=== PATIENT | female | born 1975 | race Caucasian/White ===

== ENCOUNTER 2016-10-09 19:44 | Emergency (ER) ==
[2016-10-09 19:49] VITALS: BP 149/94; TEMP 98.4; BMI 34.3
[2016-10-09] MEDS ORDERED: TORADOL IM STA (20:33)
[2016-10-09] MEDS ORDERED: DILAUDID 1 MG/ML SYRINGE IM STA (20:33)
--- NOTE | 2016-10-09 20:36 | ED.PDOC ---
General ED Provider: Dr. DIRK LANGE Chief Complaint: Back Pain Stated Complaint: Patient reports bilateral lower back pain after pulling a couch 4 days ago. Has been taking Ibuprufen with no relief pain is worse with ambulation better at rest. Time Seen by Physician: 20:25 Mode of Arrival: Walk-In Information Source: Patient Nursing and Triage Documentation Reviewed and Agree: Yes Musculoskeletal Complaint Exam - Back Pain Complaint/Exam Mechanism of Injury: Reports: Trauma (due to pulling ) Onset/Duration: 4 days Symptoms Are: Still present Timing: Constant Initial Severity: Moderate Current Severity: Severe Location: Reports: Diffuse (lower back ) Character: Reports: Aching, Throbbing, Spasmodic Aggravating: Reports: Bending, Walking Alleviating: Reports: Rest Associated Signs and Symptoms: Denies: Swelling, Redness, Bruising, Fever, Weakness, Numbness, Tingling, Abdominal pain, Flank pain, Bladder incontinence, Bowel incontinence, Weight loss, Pain with weight bearing TAD Risk Factors: Reports: None AAA Risk Factors: Reports: None Cauda Equina Risk Factors: Reports: None Epidural Abcess Risk Factors: Reports: None Related Surgical History: Reports: None Focal Tenderness: Yes Paraspinal Muscle Tenderness: Yes Paraspinal Muscle Spasm: Yes Scoliosis: No Lordosis: No Kyphosis: No SLR Test: Right Negative, Left Negative Hip Motion Testing Pain: Right Negative, Left Negative Focal Weakness: Present: None Focal Sensory Loss: Present: None Gait: Present: Normal Back Picture: 1 - area of pain and spasm. Tender to palpation. Differential Diagnoses: Strain, Sprain Review of Systems - Review Of Systems Constitutional: Reports: No symptoms Musculoskeletal: Reports: Back pain All Other Systems: Reviewed and Negative Past Medical History - Past Medical History Previously Healthy: Yes Endocrine: Reports: None Cardiovascular: Reports: None Respiratory: Reports: None Hematological: Reports: None Gastrointestinal: Reports: None Genitourinary: Reports: None Neuro/Psych: Reports: None Musculoskeletal: Reports: None Cancer: Reports: None Last Menstrual Period: PARTIAL HYSTERECTOMY - Surgical History General Surgical History: Reports: Hysterectomy, Cholecystectomy - Family History Family History: Reports: None - Social History Smoking Status: Current every day smoker, Light tobacco smoker Hx Substance Use: No Alcohol Screening: Occasionally Physical Exam - Physical Exam Appearance: Obese Pain Distress: Severe Neck: Supple Respiratory: Airway patent Cardiovascular: RRR, Pulses normal, No rub, No murmur GI/: Soft, Nontender, No masses, Bowel sounds normal Musculoskeletal: Normal strength, ROM intact, No edema, No calf tenderness Skin: Warm Neurological: Sensation intact, Motor intact, Reflexes intact, Cranial nerves intact, Alert, Oriented Psychiatric: Anxious Critical Care Note - Critical Care Note Total Time (mins): 0 Course - Course Orders, Labs, Meds: Orders Category Date Time Status Hydromorphone HCl [Dilaudid 1 mg/ml Syringe] MEDS 10/09/16 20:33 Stat 1 mg IM ONCE STA Ketorolac Tromethamine [Toradol] MEDS 10/09/16 20:33 Stat 60 mg IM ONCE STA Medications Generic Name Dose Route Start Last Admin Trade Name Freq PRN Reason Stop Dose Admin Ketorolac Tromethamine 60 mg 10/09/16 20:33 Toradol IM 10/09/16 20:34 ONCE STA Vital Signs: Temp Pulse Resp BP Pulse Ox 10/09/16 19:44 98.4 F 84 18 149/94 H 97 Departure - Departure Time of Disposition: 20:55 Disposition: HOME SELF-CARE Discharge Problem: Backache Instructions: Lower Back Exercises (ED), Muscle Spasm (ED), Back Pain (ED) Condition: Fair Pt referred to PMD for follow-up: Yes Prescriptions: Hydrocodone/Acetaminophen [[place] 5-325 Tablet] 1 tab PO Q6HR PRN #12 tablet PRN Reason: PAIN Cyclobenzaprine HCl [Flexeril] 5 mg PO TID PRN #14 tablet PRN Reason: Spasms Ibuprofen [Motrin] 600 mg PO Q6H PRN #30 tablet PRN Reason: Analgesia Allergies/Adverse Reactions: Allergies marvin flavor Adverse Reaction (Verified 10/09/16 19:50) Swelling diltiazem HCl [From Cardizem] Adverse Reaction (Verified 10/09/16 19:50) Rash egg Adverse Reaction (Verified 10/09/16 19:50) Rash meperidine HCl [From Demerol] Adverse Reaction (Verified 10/09/16 19:50) Rash morphine Adverse Reaction (Verified 10/09/16 19:50) Rash oxycodone HCl [From Percocet] Adverse Reaction (Verified 10/09/16 19:50) Rash Home Medications: Ambulatory Orders Cyclobenzaprine HCl [Flexeril] 5 mg PO TID PRN #14 tablet 10/09/16 Hydrocodone/Acetaminophen [[place] 5-325 Tablet] 1 tab PO Q6HR PRN #12 tablet 12/21 Ibuprofen [Motrin] 600 mg PO Q6H PRN #30 tablet 10/09/16 Disposition Discussed With: Patient, Family
== END 2016-10-09 21:45 | disposition home or self-care (01) ==
LOC: ED 19:44
DX: M54.5 Low back pain (principal); M62.830 Muscle spasm of back; F17.210 Nicotine dependence, cigarettes, uncomplicated; X50.9XXA Other and unspecified overexertion or strenuous movements or postures, initial encounter
CPT/HCPCS: 96372; 99282

== ENCOUNTER 2016-12-22 00:43 | Emergency (ER) ==
[2016-12-22 00:50] VITALS: BP 145/81; TEMP 97.8; BMI 36.8
[2016-12-22] MEDS ORDERED: DILAUDID 1 MG/ML SYRINGE IM STA (01:19)
[2016-12-22] MEDS ORDERED: PHENERGAN 25 MG/ML VIAL IM STA (01:20)
--- NOTE | 2016-12-22 03:08 | ED.PDOC ---
General ED Provider: Dr. FELY NÚÑEZ-ER Chief Complaint: Headache Stated Complaint: solitario got a headache--its the usual migraine Time Seen by Physician: 00:50 Mode of Arrival: Walk-In Information Source: Patient Exam Limitations: No limitations Nursing and Triage Documentation Reviewed and Agree: Yes Neurological Complaint Exam - Headache Complaint/Exam Onset: Gradual Duration: several hours Symptoms Are: Still present Timing: Constant Episodes Lasting: Hours Worst Headache Ever: No Initial Severity: Mild Current Severity: Moderate Location: Diffuse Character: Reports: Dull, Throbbing, Pressure, Typical headache, Migraine Aggravating: Reports: Bright lights Alleviating: Reports: None Associated Signs and Symptoms: Reports: Nausea. Denies: Dizziness, Seizure, Sinus pressure, Fever, Neck pain, Neck stiffness, Decreased LOC, Visual changes Related History: Reports: Similar episode Related Surgical History: Reports: None SAH Risk Factors: Denies: None Meningitis Risk Factors: Reports: None SDH Risk Factors: Reports: None Temporal Arteritis Risk Factors: Reports: Female, Normal Head CT Within Last 12 Months: Yes Fundoscopic Exam: Present: Normal Findings Papilledema Present: No Temporal Artery Tenderness: Present: None Sinus Tenderness: Present: None TMJ Tenderness: Present: None Glascow Coma Scale (see protocol): 15 Meningeal Signs Positive: No Pain on Passive Flexion-Positive Kernig's: No ROM Limited In: No Limitiations Focal Weakness: Present: None Focal Sensory Loss: Present: None Gait: Normal Nystagmus Present: No Gag Reflex Present: Yes [id number]: Normal Findings Romberg Test Positive: No Babinski Sign: Negative Right, Negative Left Heel to Toe Normal: Yes Differential Diagnoses: Migraine Review of Systems - Review Of Systems Constitutional: Reports: No symptoms Eyes: Reports: No symptoms Ears, Nose, Mouth, Throat: Reports: No symptoms Respiratory: Reports: No symptoms Cardiac: Reports: No symptoms GI: Reports: No symptoms : Reports: No symptoms Musculoskeletal: Reports: No symptoms Skin: Reports: No symptoms Neurological: Reports: Headache Endocrine: Reports: No symptoms Hematologic/Lymphatic: Reports: No symptoms All Other Systems: Reviewed and Negative Past Medical History - Past Medical History Previously Healthy: Yes Endocrine: Reports: None Cardiovascular: Reports: None Respiratory: Reports: None Hematological: Reports: None Gastrointestinal: Reports: None Genitourinary: Reports: None Neuro/Psych: Reports: None Musculoskeletal: Reports: None Cancer: Reports: None Last Menstrual Period: PT HAD PARTIAL HYSTERECTOMY IN 2003 - Surgical History General Surgical History: Reports: Hysterectomy, Cholecystectomy - Family History Family History: Reports: None - Social History Smoking Status: Current every day smoker, Heavy tobacco smoker Hx Substance Use: No Alcohol Screening: None Lives: With family - Immunizations Tetanus Shot up to Date: Yes Physical Exam - Physical Exam Appearance: Well-appearing, No pain distress, Well-nourished Eyes: SOFY, EOMI, Conjunctiva clear ENT: Ears normal, Nose normal, Oropharynx normal Neck: Supple Respiratory: Airway patent Cardiovascular: RRR, Pulses normal, No rub, No murmur GI/: Soft, Nontender, No masses, Bowel sounds normal, No Organomegaly Musculoskeletal: Normal strength, ROM intact, No edema, No calf tenderness Skin: Warm, Dry, Normal color Neurological: Sensation intact, Motor intact, Reflexes intact, Cranial nerves intact, Alert, Oriented Psychiatric: Affect appropriate, Mood appropriate Re-Evaluation - Re-Evaluation Time of Re-Evaluation: 02:30 Status: Improved Vital Signs Stable: Yes Pain Level: 0 Appearance: NAD Lungs: Clear Skin: Warm and Dry Neuro: Alert and Oriented X3 CV: RRR Critical Care Note - Critical Care Note Total Time (mins): 0 Course - Course Orders, Labs, Meds: Orders Category Date Time Status Hydromorphone HCl [Dilaudid 1 mg/ml Syringe] MEDS 12/22/16 01:19 Discontinued 1 mg IM ONCE STA Promethazine HCl [Phenergan 25 mg/ml Vial] MEDS 12/22/16 01:20 Discontinued 25 mg IM ONCE STA Medications Discontinued Medications Generic Name Dose Route Start Last Admin Trade Name Carlota PRN Reason Stop Dose Admin Hydromorphone HCl 1 mg 12/22/16 01:19 12/22/16 01:29 Dilaudid 1 Mg/Ml Syringe IM 12/22/16 01:20 1 mg ONCE STA Administration Promethazine HCl 25 mg 12/22/16 01:20 12/22/16 01:29 Phenergan 25 Mg/Ml Vial IM 12/22/16 01:21 25 mg ONCE STA Administration Vital Signs: Temp Pulse Resp BP Pulse Ox 12/22/16 00:43 97.8 F 96 H 18 145/81 H 98 Departure - Departure Time of Disposition: 03:10 Disposition: HOME SELF-CARE Discharge Problem: Migraine Qualifiers: Migraine type: unspecified Status migrainosus presence: without status migrainosus Intractability: not intractable Qualifier Code: (G43.909) Migraine, unspecified, not intractable, without status migrainosus Instructions: Migraine Headache (ED) Condition: Good Pt referred to PMD for follow-up: Yes Additional Instructions: f/u with pcp Allergies/Adverse Reactions: Allergies marvin flavor Adverse Reaction (Verified 12/22/16 00:51) Swelling diltiazem HCl [From Cardizem] Adverse Reaction (Verified 12/22/16 00:51) Rash egg Adverse Reaction (Verified 12/22/16 00:51) Rash meperidine HCl [From Demerol] Adverse Reaction (Verified 12/22/16 00:51) Rash morphine Adverse Reaction (Verified 12/22/16 00:51) Rash oxycodone HCl [From Percocet] Adverse Reaction (Verified 12/22/16 00:51) Rash tramadol Adverse Reaction (Verified 12/22/16 00:51) Vomiting Home Medications: Ambulatory Orders Ibuprofen [Motrin] 600 mg PO Q6H PRN #30 tablet 10/09/16 Disposition Discussed With: Patient
== END 2016-12-22 03:15 | disposition home or self-care (01) ==
LOC: ED 00:43
DX: G43.909 Migraine, unspecified, not intractable, without status migrainosus (principal); F17.210 Nicotine dependence, cigarettes, uncomplicated
CPT/HCPCS: 96372; 99282

== ENCOUNTER 2017-01-25 00:14 | Emergency (ER) ==
[2017-01-25 00:28] VITALS: TEMP 97.6; BMI 40.6
--- NOTE | 2017-01-25 01:18 | ED.PDOC ---
General ED Provider: Dr. DIRK LANGE Chief Complaint: Shoulder Pain/Injury Stated Complaint: Pain with movement to right shoulder. Patient states that she heard a loud pop two days ago and it gave her temporary relief Time Seen by Physician: 01:14 Mode of Arrival: Walk-In Information Source: Patient Nursing and Triage Documentation Reviewed and Agree: Yes Musculoskeletal Complaint Exam - Upper Extremity Complaint/Exam Location of Pain: Reports: Right, Shoulder Mechanism of Injury: Reports: No known trauma Onset/Duration: 2 days Symptoms Are: Still present Timing: Constant Initial Severity: Moderate Current Severity: Severe Character: Reports: Aching, Throbbing, Spasmodic Aggravating: Reports: Movement, Lifting, Internal rotation Alleviating: Reports: None Related History: Reports: Similar episode Non-Orthopedic Risk Factors: Reports: None DVT Risk Factors: Reports: None Septic Arthritis Risk Factors: Reports: None Related Surgical History: Reports: None Upper Extremity Findings: Present: Swelling NV Bundle Intact Distal to Injury: No Compartment Syndrome Risk Factors: Present: Pain, Pulselessness Differential Diagnoses: Strain, Sprain Review of Systems - Review Of Systems Constitutional: Reports: No symptoms Eyes: Reports: No symptoms Ears, Nose, Mouth, Throat: Reports: No symptoms Respiratory: Reports: No symptoms Cardiac: Reports: No symptoms GI: Reports: No symptoms : Reports: No symptoms Musculoskeletal: Reports: Joint pain Skin: Reports: No symptoms Neurological: Reports: Anxiety Endocrine: Reports: No symptoms Hematologic/Lymphatic: Reports: No symptoms All Other Systems: Reviewed and Negative Past Medical History - Past Medical History Previously Healthy: Yes Endocrine: Reports: None Cardiovascular: Reports: None Respiratory: Reports: None Hematological: Reports: None Gastrointestinal: Reports: None Genitourinary: Reports: None Neuro/Psych: Reports: None Musculoskeletal: Reports: None Cancer: Reports: None Last Menstrual Period: 2002 - Surgical History General Surgical History: Reports: Hysterectomy, Cholecystectomy - Family History Family History: Reports: None - Social History Smoking Status: Current every day smoker, Heavy tobacco smoker Hx Substance Use: No Alcohol Screening: None Physical Exam - Physical Exam Appearance: Obese Pain Distress: Moderate Eyes: SOFY, EOMI, Conjunctiva clear ENT: Ears normal, Nose normal, Oropharynx normal Neck: Supple Respiratory: Airway patent, Breath sounds clear, Breath sounds equal, Respirations nonlabored Cardiovascular: RRR, Pulses normal, No rub, No murmur GI/: Soft, Nontender, No masses, Bowel sounds normal, No Organomegaly Musculoskeletal: Normal strength, No edema, No calf tenderness, Limited ROM ( righth shoulder ) Skin: Warm, Dry, Normal color Neurological: Sensation intact, Motor intact, Reflexes intact, Cranial nerves intact, Alert, Oriented Psychiatric: Anxious Re-Evaluation - Re-Evaluation Time of Re-Evaluation: 01:15 Status: Improved Vital Signs Stable: Yes (136/92) Critical Care Note - Critical Care Note Total Time (mins): 0 Course - Course Orders, Labs, Meds: Orders Category Date Time Status Hydrocodone Bit/Acetaminophen [[place] 7.5-325] MEDS 01/25/17 01:21 Discontinued 1 tab PO ONCE STA Methylprednisolone Sod Succ/Pf [Solu-Medrol 125 mg] MEDS 01/25/17 01:21 Discontinued 125 mg IM ONCE STA Medications Discontinued Medications Generic Name Dose Route Start Last Admin Trade Name Freq PRN Reason Stop Dose Admin Acetaminophen/Hydrocodone Bitart 1 tab 01/25/17 01:21 01/25/17 01:28 [place] 7.5-325 PO 01/25/17 01:22 1 tab ONCE STA Administration Methylprednisolone Sodium Succinate 125 mg 01/25/17 01:21 01/25/17 01:28 Solu-Medrol 125 Mg IM 01/25/17 01:22 125 mg ONCE STA Administration Vital Signs: Temp Pulse Resp BP Pulse Ox 01/25/17 01:32 136/92 H 01/25/17 00:15 97.6 F 90 18 156/110 H 98 Departure - Departure Time of Disposition: 01:17 Disposition: HOME SELF-CARE Discharge Problem: Shoulder pain Instructions: Rotator Cuff Tendinitis (ED) Condition: Fair Pt referred to PMD for follow-up: Yes Additional Instructions: Continue home Ibuprofen take [place] as needed for severe pain. Follow up with the clinic for Therapy referral. Prescriptions: Hydrocodone/Acetaminophen [[place] 5-325 Tablet] 1 tab PO Q6HR PRN #12 tablet PRN Reason: PAIN Methylprednisolone [Medrol Dosepak] 4 mg PO DIRECTED #1 pkg Allergies/Adverse Reactions: Allergies marvin flavor Adverse Reaction (Verified 01/25/17 00:20) Swelling diltiazem HCl [From Cardizem] Adverse Reaction (Verified 01/25/17 00:20) Rash egg Adverse Reaction (Verified 01/25/17 00:20) Rash meperidine HCl [From Demerol] Adverse Reaction (Verified 01/25/17 00:20) Rash morphine Adverse Reaction (Verified 01/25/17 00:20) Rash oxycodone HCl [From Percocet] Adverse Reaction (Verified 01/25/17 00:20) Rash tramadol Adverse Reaction (Verified 01/25/17 00:20) Vomiting Home Medications: Ambulatory Orders Ibuprofen [Motrin] 600 mg PO Q6H PRN #30 tablet 10/09/16 Hydrocodone/Acetaminophen [[place] 5-325 Tablet] 1 tab PO Q6HR PRN #12 tablet Methylprednisolone [Medrol Dosepak] 4 mg PO DIRECTED #1 pkg 01/25/17 Disposition Discussed With: Patient
[2017-01-25] MEDS ORDERED: NORCO 7.5-325 PO STA (01:21)
[2017-01-25] MEDS ORDERED: SOLU-MEDROL 125 MG IM STA (01:21)
[2017-01-25 01:52] VITALS: BP 136/92
== END 2017-01-25 01:45 | disposition home or self-care (01) ==
LOC: ED 00:14
DX: M75.101 Unspecified rotator cuff tear or rupture of right shoulder, not specified as traumatic (principal)
CPT/HCPCS: 96372; 99282

== ENCOUNTER 2017-10-05 20:55 | Emergency (ER) ==
[2017-10-05 21:00] VITALS: BP 168/92; TEMP 97.7; BMI 40.3
--- NOTE | 2017-10-05 21:17 | ED.PDOC ---
General ED Provider: Dr. BRAYAN JENKINS Chief Complaint: Extremity Swelling/Pain Stated Complaint: Rt leg is swollen tender, No Injury or fall. Worried about the clots. Time Seen by Physician: 21:15 Mode of Arrival: Walk-In Information Source: Patient Nursing and Triage Documentation Reviewed and Agree: Yes Reviewed sepsis parameters & appropriate labs ordered?: Yes System Inflammatory Response Syndrome: Not Applicable Sepsis Protocol: For patient's 13 years and over: Temp is 96.8 and below OR 101 and greater Pulse >90 BPM Resp >20/minute Acutely Altered Mental Status Are patient's symptoms suggestive of a new infection, such as: -Pneumonia -Skin, Soft Tissue -Endocarditis -UTI -Bone, Joint Infection -Implantable Device -Acute Abdominal Infection -Wound Infection -Meningitis -Blood Stream Catheter Infection -Unknown Musculoskeletal Complaint Exam - Lower Extremity Complaint/Exam Location of Pain: Reports: Right, Leg, Knee Mechanism of Injury: Reports: No known trauma Symptoms Are: Still present Onset of Pain: Reports: Immediate Initial Severity: Moderate Current Severity: Moderate Location: Reports: Diffuse Character: Reports: Dull, Aching Alleviating: Reports: None Aggravating: Reports: Movement, Weight bearing Able to Bear Weight: Yes Associated Signs and Symptoms: Reports: Swelling. Denies: Redness, Bruising, Fever, Weakness, Numbness, Tingling DVT Risk Factors: Reports: None Septic Arthritis Risk Factors: Reports: None Related Surgical History: Reports: None Lower Extremity Findings: Present: Swelling. Absent: Abnormal contour, Rotation NV Bundle Intact Distal to Injury: No Differential Diagnoses: DVT, Strain Review of Systems - Review Of Systems Constitutional: Reports: No symptoms Eyes: Reports: No symptoms Ears, Nose, Mouth, Throat: Reports: No symptoms Respiratory: Reports: No symptoms Cardiac: Reports: No symptoms GI: Reports: No symptoms : Reports: No symptoms Musculoskeletal: Reports: Joint pain, Muscle pain Skin: Reports: No symptoms Neurological: Reports: No symptoms Endocrine: Reports: No symptoms Hematologic/Lymphatic: Reports: No symptoms All Other Systems: Reviewed and Negative Past Medical History - Past Medical History Previously Healthy: Yes Endocrine: Reports: None Cardiovascular: Reports: None Respiratory: Reports: None Hematological: Reports: None Gastrointestinal: Reports: None Genitourinary: Reports: None Neuro/Psych: Reports: None Musculoskeletal: Reports: None Cancer: Reports: None Last Menstrual Period: na - Surgical History General Surgical History: Reports: Hysterectomy, Cholecystectomy - Family History Family History: Reports: None - Social History Smoking Status: Current every day smoker, Heavy tobacco smoker Hx Substance Use: No Alcohol Screening: None - Immunizations Tetanus Shot up to Date: Yes Physical Exam - Physical Exam Appearance: Obese Pain Distress: Moderate Eyes: SOFY, EOMI, Conjunctiva clear ENT: Ears normal, Nose normal, Oropharynx normal Respiratory: Airway patent, Breath sounds clear, Breath sounds equal, Respirations nonlabored Cardiovascular: RRR, Pulses normal, No rub, No murmur GI/: Soft, Nontender, No masses, Bowel sounds normal, No Organomegaly Musculoskeletal: Limited ROM, Edema Skin: Warm, Dry, Normal color Neurological: Sensation intact, Motor intact, Reflexes intact, Cranial nerves intact, Alert, Oriented Psychiatric: Affect appropriate, Mood appropriate Critical Care Note - Critical Care Note Total Time (mins): 10 Course - Course Vital Signs: Temp Pulse Resp BP Pulse Ox 10/05/17 20:57 97.7 F 70 20 168/92 H 97 Departure - Departure Time of Disposition: 21:17 Disposition: AMA Discharge Problem: Edema of lower extremity Instructions: Leg Pain (ED) Condition: Stable Pt referred to PMD for follow-up: Yes Additional Instructions: son is taking her to [place], where they scan the leg for the DVT Allergies/Adverse Reactions: Allergies marvin flavor Adverse Reaction (Verified 10/05/17 21:04) Swelling diltiazem HCl [From Cardizem] Adverse Reaction (Verified 10/05/17 21:04) Rash egg Adverse Reaction (Verified 10/05/17 21:04) Rash meperidine HCl [From Demerol] Adverse Reaction (Verified 10/05/17 21:04) Rash morphine Adverse Reaction (Verified 10/05/17 21:04) Rash oxycodone HCl [From Percocet] Adverse Reaction (Verified 10/05/17 21:04) Rash tramadol Adverse Reaction (Verified 10/05/17 21:04) Vomiting Home Medications: Ambulatory Orders 1 [No Reported Medications] 08/10/17 Disposition Discussed With: Patient, Family
== END 2017-10-05 21:20 | disposition left against medical advice (07) ==
LOC: ED 20:55
DX: R60.0 Localized edema (principal); F17.210 Nicotine dependence, cigarettes, uncomplicated
CPT/HCPCS: 99284

== ENCOUNTER 2017-10-31 16:09 | Outpatient (CLI) | END 2017-10-31 16:10 | disposition home or self-care (01) | LOC: LAB 16:09 | PROVIDERS: ATTEND Emergency Medicine | DX: F33.1 Major depressive disorder, recurrent, moderate (principal); F41.1 Generalized anxiety disorder; M79.7 Fibromyalgia; K21.9 Gastro-esophageal reflux disease without esophagitis | CPT/HCPCS: 36415; 80053; 80061; 84443; 85025 ==

== ENCOUNTER 2017-11-29 22:04 | Emergency (ER) ==
[2017-11-29 22:15] VITALS: BP 129/80; TEMP 97.8; BMI 41.2
[2017-11-29] MEDS ORDERED: DILAUDID 1 MG/ML SYRINGE IM STA (22:34)
[2017-11-29] MEDS ORDERED: ZOFRAN 4 MG/2 ML IM STA (22:34)
--- NOTE | 2017-11-29 22:37 | ED.PDOC ---
General ED Provider: Dr. BRAYAN JENKINS Chief Complaint: Headache Stated Complaint: Typical migraine, not able help with home medications Time Seen by Physician: 22:34 Mode of Arrival: Walk-In Information Source: Patient Primary Care Provider: BRAYAN JENKINS[facility] Nursing and Triage Documentation Reviewed and Agree: Yes Reviewed sepsis parameters & appropriate labs ordered?: No System Inflammatory Response Syndrome: Not Applicable Sepsis Protocol: For patient's 13 years and over: Temp is 96.8 and below OR 101 and greater Pulse >90 BPM Resp >20/minute Acutely Altered Mental Status Are patient's symptoms suggestive of a new infection, such as: -Pneumonia -Skin, Soft Tissue -Endocarditis -UTI -Bone, Joint Infection -Implantable Device -Acute Abdominal Infection -Wound Infection -Meningitis -Blood Stream Catheter Infection -Unknown Neurological Complaint Exam - Headache Complaint/Exam Onset: Gradual Symptoms Are: Still present Timing: Constant Episodes Lasting: Hours Worst Headache Ever: No Initial Severity: Moderate Current Severity: Moderate Location: Left, Frontal Character: Reports: Dull, Throbbing, Typical headache, Migraine Aggravating: Reports: None Alleviating: Reports: None Associated Signs and Symptoms: Denies: Dizziness, Seizure, Nausea, Vomiting, Sinus pressure, Fever, Neck pain, Neck stiffness, Decreased LOC, Visual changes Related History: Reports: Similar episode Related Surgical History: Reports: None SAH Risk Factors: Reports: None Meningitis Risk Factors: Reports: None SDH Risk Factors: Reports: None Temporal Arteritis Risk Factors: Reports: None Normal Head CT Within Last 12 Months: Yes Fundoscopic Exam: Present: Normal Findings Sinus Tenderness: Present: None TMJ Tenderness: Present: None Meningeal Signs Positive: No Pain on Passive Flexion-Positive Kernig's: No ROM Limited In: No Limitiations Focal Weakness: Present: None Focal Sensory Loss: Present: None Gait: Normal Nystagmus Present: Yes Gag Reflex Present: No [id number]: Normal Findings Romberg Test Positive: No Differential Diagnoses: Migraine Review of Systems - Review Of Systems Constitutional: Reports: No symptoms Eyes: Reports: No symptoms Ears, Nose, Mouth, Throat: Reports: No symptoms Respiratory: Reports: No symptoms Cardiac: Reports: No symptoms GI: Reports: No symptoms : Reports: No symptoms Musculoskeletal: Reports: No symptoms Skin: Reports: No symptoms Neurological: Reports: Headache Endocrine: Reports: No symptoms Hematologic/Lymphatic: Reports: No symptoms All Other Systems: Reviewed and Negative Past Medical History - Past Medical History Previously Healthy: Yes Endocrine: Reports: Dyslipidemia Cardiovascular: Reports: None Respiratory: Reports: None Hematological: Reports: None Gastrointestinal: Reports: None Genitourinary: Reports: None Neuro/Psych: Reports: Depression Musculoskeletal: Reports: None Cancer: Reports: None Last Menstrual Period: hyst 2002 - Surgical History General Surgical History: Reports: Hysterectomy, Cholecystectomy - Family History Family History: Reports: None - Social History Smoking Status: Current every day smoker, Heavy tobacco smoker Smoking Cessation Counseling Time: > 3 min - 10 min Hx Substance Use: No Alcohol Screening: None - Immunizations Tetanus Shot up to Date: Yes Physical Exam - Physical Exam Appearance: Ill-appearing Eyes: SOFY, EOMI, Conjunctiva clear ENT: Ears normal, Nose normal, Oropharynx normal Respiratory: Airway patent, Breath sounds clear, Breath sounds equal, Respirations nonlabored Cardiovascular: RRR, Pulses normal, No rub, No murmur GI/: Soft, Nontender, No masses, Bowel sounds normal, No Organomegaly Musculoskeletal: Normal strength, ROM intact, No edema, No calf tenderness Skin: Warm, Dry, Normal color Neurological: Sensation intact, Motor intact, Reflexes intact, Cranial nerves intact, Alert, Oriented Psychiatric: Affect appropriate, Mood appropriate Critical Care Note - Critical Care Note Total Time (mins): 15 Course - Course Orders, Labs, Meds: Orders Category Date Time Status Hydromorphone HCl [Dilaudid 1 mg/ml Syringe] MEDS 11/29/17 22:34 Stat 1 mg IM ONCE STA Ondansetron HCl/Pf [Zofran 4 mg/2 ml] MEDS 11/29/17 22:34 Stat 4 mg IM ONCE STA Vital Signs: Temp Pulse Resp BP Pulse Ox 11/29/17 22:10 97.8 F 87 20 129/80 97 Departure - Departure Time of Disposition: 22:38 Disposition: HOME SELF-CARE Discharge Problem: Headache Instructions: Migraine Headache (ED) Condition: Stable Pt referred to PMD for follow-up: Yes IPMP verified?: No Additional Instructions: keep monitoring the headaches, May needs neurologist . Allergies/Adverse Reactions: Allergies marvin flavor Adverse Reaction (Verified 11/29/17 22:16) Swelling diltiazem HCl [From Cardizem] Adverse Reaction (Verified 11/29/17 22:16) Rash egg Adverse Reaction (Verified 11/29/17 22:16) Rash meperidine HCl [From Demerol] Adverse Reaction (Verified 11/29/17 22:16) Rash morphine Adverse Reaction (Verified 11/29/17 22:16) Rash oxycodone HCl [From Percocet] Adverse Reaction (Verified 11/29/17 22:16) Rash tramadol Adverse Reaction (Verified 11/29/17 22:16) Vomiting Home Medications: Ambulatory Orders Famotidine/Ca Carb/Mag Hydrox [Pepcid Complete Tablet Chew] 1 each PO BID tab- cap 10/31/17 Ibuprofen 600 mg PO QID PRN tab-cap 10/31/17 Bupropion HCl [Wellbutrin Sr] 150 mg PO DAILY 11/29/17 Disposition Discussed With: Patient, Family
== END 2017-11-29 23:14 | disposition home or self-care (01) ==
LOC: ED 22:04
DX: G43.909 Migraine, unspecified, not intractable, without status migrainosus (principal); F17.210 Nicotine dependence, cigarettes, uncomplicated
CPT/HCPCS: 96372; 99282

== ENCOUNTER 2017-12-04 18:15 | Emergency (ER) ==
[2017-12-04 18:23] VITALS: BP 140/87; TEMP 97.8; BMI 41.1
[2017-12-04] MEDS ORDERED: DILAUDID 2 MG/ML SYRINGE IM STA (18:27)
[2017-12-04] MEDS ORDERED: PHENERGAN 25 MG/ML VIAL IM STA (18:28)
--- NOTE | 2017-12-04 18:31 | ED.PDOC ---
General ED Provider: Dr. MICHELL MASSEY Chief Complaint: Headache Stated Complaint: headache chronic Time Seen by Physician: 18:17 (seen with nurse at all times , seen on for same issue ) Mode of Arrival: Walk-In Information Source: Patient Exam Limitations: No limitations Primary Care Provider: B[facility]AN A[facility]YAST. [facility] Nursing and Triage Documentation Reviewed and Agree: Yes Reviewed sepsis parameters & appropriate labs ordered?: Yes (no injury) System Inflammatory Response Syndrome: Not Applicable Sepsis Protocol: For patient's 13 years and over: Temp is 96.8 and below OR 101 and greater Pulse >90 BPM Resp >20/minute Acutely Altered Mental Status Are patient's symptoms suggestive of a new infection, such as: -Pneumonia -Skin, Soft Tissue -Endocarditis -UTI -Bone, Joint Infection -Implantable Device -Acute Abdominal Infection -Wound Infection -Meningitis -Blood Stream Catheter Infection -Unknown System Inflammatory Response Syndrome: Not Applicable Neurological Complaint Exam - Headache Complaint/Exam Onset: Gradual Duration: chronic issue worse today Symptoms Are: Still present Timing: Constant Episodes Lasting: Hours Worst Headache Ever: No Initial Severity: Moderate Current Severity: Moderate Character: Reports: Throbbing Aggravating: Reports: None Alleviating: Reports: None Associated Signs and Symptoms: Denies: Dizziness, Seizure, Nausea, Vomiting, Sinus pressure, Fever, Neck pain, Neck stiffness, Decreased LOC, Visual changes Related History: Reports: Similar episode Related Surgical History: Reports: None SAH Risk Factors: Reports: None Meningitis Risk Factors: Reports: None SDH Risk Factors: Reports: None Temporal Arteritis Risk Factors: Reports: Female, Normal Head CT Within Last 12 Months: Yes Fundoscopic Exam: Present: Normal Findings Papilledema Present: No Temporal Artery Tenderness: Present: None Sinus Tenderness: Present: None TMJ Tenderness: Present: None Glascow Coma Scale (see protocol): 15 Meningeal Signs Positive: No Pain on Passive Flexion-Positive Kernig's: No ROM Limited In: No Limitiations Focal Weakness: Present: None Focal Sensory Loss: Present: None Gait: Normal Nystagmus Present: No Gag Reflex Present: Yes Romberg Test Positive: No Babinski Sign: Negative Right, Negative Left Differential Diagnoses: Migraine Review of Systems - Review Of Systems Constitutional: Reports: No symptoms Eyes: Reports: No symptoms Ears, Nose, Mouth, Throat: Reports: No symptoms Respiratory: Reports: No symptoms Cardiac: Reports: No symptoms GI: Reports: No symptoms : Reports: No symptoms Musculoskeletal: Reports: No symptoms Skin: Reports: No symptoms Neurological: Reports: Headache Endocrine: Reports: No symptoms Hematologic/Lymphatic: Reports: No symptoms All Other Systems: Reviewed and Negative Past Medical History - Past Medical History Previously Healthy: Yes Endocrine: Reports: Dyslipidemia Cardiovascular: Reports: None Respiratory: Reports: None Hematological: Reports: None Gastrointestinal: Reports: None Genitourinary: Reports: None Neuro/Psych: Reports: Depression Musculoskeletal: Reports: None Cancer: Reports: None Last Menstrual Period: na - Surgical History General Surgical History: Reports: Hysterectomy, Cholecystectomy - Family History Family History: Reports: None - Social History Smoking Status: Current every day smoker Hx Substance Use: No Alcohol Screening: None - Immunizations Tetanus Shot up to Date: Yes Physical Exam - Physical Exam Appearance: Well-appearing, No pain distress, Well-nourished Eyes: SOFY, EOMI, Conjunctiva clear ENT: Ears normal, Nose normal, Oropharynx normal Respiratory: Airway patent, Breath sounds clear, Breath sounds equal, Respirations nonlabored Cardiovascular: RRR, Pulses normal, No rub, No murmur GI/: Soft, Nontender, No masses, Bowel sounds normal, No Organomegaly Musculoskeletal: Normal strength, ROM intact, No edema, No calf tenderness Skin: Warm, Dry, Normal color Neurological: Sensation intact, Motor intact, Reflexes intact, Cranial nerves intact, Alert, Oriented Psychiatric: Affect appropriate, Mood appropriate Critical Care Note - Critical Care Note Total Time (mins): 0 Course - Course Orders, Labs, Meds: Orders Category Date Time Status Hydromorphone HCl/Pf [Dilaudid 2 mg/ml Syringe] MEDS 12/04/17 18:27 Stat 0.5 mg IM ONCE STA Promethazine HCl [Phenergan 25 mg/ml Vial] MEDS 12/04/17 18:28 Stat 50 mg IM ONCE STA Medications Generic Name Dose Route Start Last Admin Trade Name Freq PRN Reason Stop Dose Admin Promethazine HCl 50 mg 12/04/17 18:28 Phenergan 25 Mg/Ml Vial IM 12/04/17 18:29 ONCE STA Discontinued Medications Generic Name Dose Route Start Last Admin Trade Name Freq PRN Reason Stop Dose Admin Hydromorphone HCl 0.5 mg 12/04/17 18:27 Dilaudid 2 Mg/Ml Syringe IM 12/04/17 18:28 ONCE STA Vital Signs: Temp Pulse Resp BP Pulse Ox 12/04/17 18:17 97.8 F 87 16 140/87 97 Departure - Departure Time of Disposition: 19:00 (seen with layla) Disposition: HOME SELF-CARE Discharge Problem: Headache Instructions: Migraine Headache (ED) Condition: Good Pt referred to PMD for follow-up: Yes IPMP verified?: Yes Additional Instructions: Please call your Family Physician as soon as possible to schedule a follow-up appointment. Allergies/Adverse Reactions: Allergies marvin flavor Adverse Reaction (Verified 12/04/17 18:24) Swelling diltiazem HCl [From Cardizem] Adverse Reaction (Verified 12/04/17 18:24) Rash egg Adverse Reaction (Verified 12/04/17 18:24) Rash meperidine HCl [From Demerol] Adverse Reaction (Verified 12/04/17 18:24) Rash morphine Adverse Reaction (Verified 12/04/17 18:24) Rash oxycodone HCl [From Percocet] Adverse Reaction (Verified 12/04/17 18:24) Rash tramadol Adverse Reaction (Verified 12/04/17 18:24) Vomiting Home Medications: Ambulatory Orders Ibuprofen 600 mg PO QID PRN tab-cap 10/31/17 Bupropion HCl [Wellbutrin Sr] 150 mg PO DAILY 11/29/17 Aspirin/Acetaminophen/Caffeine [Excedrin Migraine Caplet] 1 each PO PRN
[2017-12-04] MEDS ORDERED: DILAUDID 1 MG/ML SYRINGE IM STA (18:34)
== END 2017-12-04 19:51 | disposition home or self-care (01) ==
LOC: ED 18:15
DX: R51 Headache (principal); F17.210 Nicotine dependence, cigarettes, uncomplicated
CPT/HCPCS: 96372; 99283

== ENCOUNTER 2018-01-01 22:58 | Emergency (ER) ==
[2018-01-01 23:16] VITALS: BP 146/83; TEMP 98.1; BMI 41.4
[2018-01-01] MEDS ORDERED: TORADOL IM STA (23:31)
[2018-01-01] MEDS ORDERED: DILAUDID 2 MG/ML SYRINGE IM STA (23:31)
[2018-01-01] MEDS ORDERED: PHENERGAN 25 MG/ML VIAL IM STA (23:31)
[2018-01-01] MEDS ORDERED: DILAUDID 2 MG/ML SYRINGE ONE (23:33)
[2018-01-01] MEDS ORDERED: PHENERGAN 25 MG/ML VIAL ONE (23:33)
[2018-01-01] MEDS ORDERED: TORADOL ONE (23:34)
--- NOTE | 2018-01-01 23:35 | ED.PDOC ---
General ED Provider: Dr. FELY NÚÑEZ-ER Chief Complaint: Headache Stated Complaint: solitario got a migraine Time Seen by Physician: 23:20 Mode of Arrival: Walk-In Information Source: Patient Exam Limitations: No limitations [facility] Nursing and Triage Documentation Reviewed and Agree: Yes Reviewed sepsis parameters & appropriate labs ordered?: Yes System Inflammatory Response Syndrome: Not Applicable Sepsis Protocol: For patient's 13 years and over: Temp is 96.8 and below OR 101 and greater Pulse >90 BPM Resp >20/minute Acutely Altered Mental Status Are patient's symptoms suggestive of a new infection, such as: -Pneumonia -Skin, Soft Tissue -Endocarditis -UTI -Bone, Joint Infection -Implantable Device -Acute Abdominal Infection -Wound Infection -Meningitis -Blood Stream Catheter Infection -Unknown Neurological Complaint Exam - Headache Complaint/Exam Onset: Gradual Duration: several hours Symptoms Are: Still present Timing: Constant Worst Headache Ever: No Initial Severity: Mild Current Severity: Moderate Location: Diffuse Character: Reports: Dull, Throbbing, Typical headache, Migraine Aggravating: Reports: Bright lights Alleviating: Reports: Position change Associated Signs and Symptoms: Reports: Nausea, Neck pain. Denies: Dizziness, Seizure, Vomiting, Sinus pressure, Fever, Neck stiffness, Decreased LOC, Visual changes Related History: Reports: Similar episode Related Surgical History: Reports: None SAH Risk Factors: Reports: None Meningitis Risk Factors: Reports: None SDH Risk Factors: Reports: None Temporal Arteritis Risk Factors: Reports: Female, Normal Head CT Within Last 12 Months: No Fundoscopic Exam: Present: Normal Findings Papilledema Present: Yes Temporal Artery Tenderness: Present: None Sinus Tenderness: Present: None TMJ Tenderness: Present: None Glascow Coma Scale (see protocol): 15 Meningeal Signs Positive: No Pain on Passive Flexion-Positive Kernig's: No ROM Limited In: No Limitiations Focal Weakness: Present: None Focal Sensory Loss: Present: None Gait: Normal Nystagmus Present: No Gag Reflex Present: Yes [id number]: Normal Findings Romberg Test Positive: No Babinski Sign: Negative Right, Negative Left Heel to Toe Normal: Yes Differential Diagnoses: Migraine Review of Systems - Review Of Systems Constitutional: Reports: No symptoms Eyes: Reports: No symptoms Ears, Nose, Mouth, Throat: Reports: No symptoms Respiratory: Reports: No symptoms Cardiac: Reports: No symptoms GI: Reports: Nausea : Reports: No symptoms Musculoskeletal: Reports: Neck pain Skin: Reports: No symptoms Neurological: Reports: Headache Endocrine: Reports: No symptoms Hematologic/Lymphatic: Reports: No symptoms All Other Systems: Reviewed and Negative Past Medical History - Past Medical History Previously Healthy: Yes Endocrine: Reports: Dyslipidemia Cardiovascular: Reports: None Respiratory: Reports: None Hematological: Reports: None Gastrointestinal: Reports: None Genitourinary: Reports: None Neuro/Psych: Reports: Depression Musculoskeletal: Reports: None Cancer: Reports: None Last Menstrual Period: 2002 partial hyst - Surgical History General Surgical History: Reports: Hysterectomy, Cholecystectomy - Family History Family History: Reports: None - Social History Smoking Status: Current every day smoker Hx Substance Use: No Alcohol Screening: None - Immunizations Tetanus Shot up to Date: Yes Physical Exam - Physical Exam Appearance: Well-appearing, No pain distress, Well-nourished Eyes: SOFY, EOMI, Conjunctiva clear ENT: Ears normal, Nose normal, Oropharynx normal Neck: Supple Respiratory: Airway patent, Breath sounds clear, Breath sounds equal, Respirations nonlabored Cardiovascular: RRR, Pulses normal, No rub, No murmur GI/: Soft, Nontender, No masses, Bowel sounds normal, No Organomegaly Musculoskeletal: Normal strength, ROM intact, No edema, No calf tenderness Skin: Warm, Dry, Normal color Neurological: Sensation intact, Motor intact, Reflexes intact, Cranial nerves intact, Alert, Oriented Psychiatric: Affect appropriate, Mood appropriate Interpretation - Radiology Interpretation Radiology Interpretation By: Radiologist Radiology Results: Negative Exam Interpreted: CT Scan Re-Evaluation - Re-Evaluation Time of Re-Evaluation: 11:55 Status: Improved Vital Signs Stable: Yes Pain Level: 1` Appearance: NAD Lungs: Clear Skin: Warm and Dry Neuro: Alert and Oriented X3 CV: RRR Critical Care Note - Critical Care Note Total Time (mins): 0 Course - Course Orders, Labs, Meds: Orders Category Date Time Status Hydromorphone HCl/Pf [Dilaudid 2 mg/ml Syringe] MEDS 01/01/18 23:31 Discontinued 2 mg IM ONCE STA Ketorolac Tromethamine [Toradol] MEDS 01/01/18 23:31 Discontinued 60 mg IM ONCE STA Promethazine HCl [Phenergan 25 mg/ml Vial] MEDS 01/01/18 23:31 Discontinued 25 mg IM ONCE STA CT CERVICAL SPINE W/O CONTRAST Stat RADS 01/01/18 23:[address] HEAD W/O CONTRAST Stat RADS 01/01/18 23:30 Ordered Medications Discontinued Medications Generic Name Dose Route Start Last Admin Trade Name Carlota PRN Reason Stop Dose Admin Hydromorphone HCl 2 mg 01/01/18 23:31 Dilaudid 2 Mg/Ml Syringe IM 01/01/18 23:32 ONCE STA Ketorolac Tromethamine 60 mg 01/01/18 23:31 Toradol IM 01/01/18 23:32 ONCE STA Promethazine HCl 25 mg 01/01/18 23:31 Phenergan 25 Mg/Ml Vial IM 01/01/18 23:32 ONCE STA Vital Signs: Temp Pulse Resp BP Pulse Ox 01/01/18 23:04 98.1 F 83 20 146/83 H 96 Departure - Departure Time of Disposition: 23:35 Disposition: HOME SELF-CARE Discharge Problem: Migraine Qualifiers: Migraine type: unspecified Status migrainosus presence: without status migrainosus Intractability: not intractable Qualified Code(s): G43.909 - Migraine, unspecified, not intractable, without status migrainosus Instructions: Migraine Headache (ED) Condition: Good Pt referred to PMD for follow-up: Yes IPMP verified?: No Additional Instructions: f/u pcp Allergies/Adverse Reactions: Allergies marvin flavor Adverse Reaction (Verified 01/01/18 23:15) Swelling diltiazem HCl [From Cardizem] Adverse Reaction (Verified 01/01/18 23:15) Rash egg Adverse Reaction (Verified 01/01/18 23:15) Rash meperidine HCl [From Demerol] Adverse Reaction (Verified 01/01/18 23:15) Rash morphine Adverse Reaction (Verified 01/01/18 23:15) Rash oxycodone HCl [From Percocet] Adverse Reaction (Verified 01/01/18 23:15) Rash tramadol Adverse Reaction (Verified 01/01/18 23:15) Vomiting Home Medications: Ambulatory Orders Ibuprofen 600 mg PO QID PRN tab-cap 10/31/17 Aspirin/Acetaminophen/Caffeine [Excedrin Migraine Caplet] 1 each PO PRN Disposition Discussed With: Patient, Family
--- NOTE | 2018-01-02 00:07 | CT ---
EXAM: CT of the cervical spine without contrast. HISTORY: Neck pain. PROCEDURE: Contiguous axial CT images of the cervical spine without contrast with coronal and sagitt al reformats. FINDINGS: There is normal alignment of the cervical vertebral bodies and facets. The vertebral body heights and intervertebral disc spaces are maintained. No evidence of fracture. There is multilevel f acet arthropathy. The C1-2 relationship is maintained. No prevertebral soft tissue abnormality. Impression: Normal alignment of the cervical spine with degenerative changes as described.
--- NOTE | 2018-01-02 00:11 | CT ---
EXAM: CT brain without contrast HISTORY: Headache TECHNIQUE: CT of the brain without intravenous contrast FINDINGS: There is no acute hemorrhage midline shift or mass effect. No hydrocephalus or abnormal e xtra-axial fluid collection. No significant parenchymal attenuation abnormality. The bony cranium a ppears normal. The visualized paranasal sinuses are clear. Soft tissues without significant abnormali ty. IMPRESSION: 1. CT of the brain within normal limits.
== END 2018-01-02 00:18 | disposition home or self-care (01) ==
LOC: ED 22:58
DX: G43.909 Migraine, unspecified, not intractable, without status migrainosus (principal)
CPT/HCPCS: 96372; 99282

== ENCOUNTER 2018-01-18 21:27 | Emergency (ER) ==
[2018-01-18 21:31] VITALS: BP 145/83; TEMP 97.8; BMI 40.6
[2018-01-18] MEDS ORDERED: ZOFRAN ODT PO STA (21:39)
[2018-01-18] MEDS ORDERED: STADOL IM STA (21:44)
--- NOTE | 2018-01-18 21:49 | ED.PDOC ---
General ED Provider: Dr. DIRK LANGE Chief Complaint: Headache Stated Complaint: I have a headache on the left side going down to the neck. Feels like other headache. I tried Fioricet but it did not help. I have an APT with a neurologist soon. Time Seen by Physician: 21:30 Mode of Arrival: Walk-In Information Source: Patient Exam Limitations: No limitations [facility] Nursing and Triage Documentation Reviewed and Agree: Yes Reviewed sepsis parameters & appropriate labs ordered?: No System Inflammatory Response Syndrome: Not Applicable Sepsis Protocol: For patient's 13 years and over: Temp is 96.8 and below OR 101 and greater Pulse >90 BPM Resp >20/minute Acutely Altered Mental Status Are patient's symptoms suggestive of a new infection, such as: -Pneumonia -Skin, Soft Tissue -Endocarditis -UTI -Bone, Joint Infection -Implantable Device -Acute Abdominal Infection -Wound Infection -Meningitis -Blood Stream Catheter Infection -Unknown System Inflammatory Response Syndrome: Not Applicable Neurological Complaint Exam - Headache Complaint/Exam Onset: Gradual Duration: 11 hours Symptoms Are: Still present Timing: Constant Worst Headache Ever: No Initial Severity: Moderate Current Severity: Severe Location: Left, Temporal Character: Reports: Typical headache Aggravating: Reports: Bright lights Alleviating: Reports: None Associated Signs and Symptoms: Reports: Nausea, Neck pain. Denies: Dizziness, Vomiting, Sinus pressure, Fever, Neck stiffness, Decreased LOC Related History: Reports: Similar episode SAH Risk Factors: Reports: None Meningitis Risk Factors: Reports: None SDH Risk Factors: Reports: None Temporal Arteritis Risk Factors: Reports: None Normal Head CT Within Last 12 Months: Yes Papilledema Present: No Temporal Artery Tenderness: Present: None Sinus Tenderness: Present: None TMJ Tenderness: Present: None Glascow Coma Scale (see protocol): 15 Meningeal Signs Positive: No Pain on Passive Flexion-Positive Kernig's: No ROM Limited In: No Limitiations Focal Weakness: Present: None Focal Sensory Loss: Present: None Gait: Normal Nystagmus Present: No Gag Reflex Present: No [id number]: Normal Findings Romberg Test Positive: No Babinski Sign: Negative Right, Negative Left Heel to Toe Normal: Yes Head Picture: 1 - area of pain Differential Diagnoses: Migraine, Tension Headache Review of Systems - Review Of Systems Constitutional: Reports: No symptoms Eyes: Reports: Photophobia Ears, Nose, Mouth, Throat: Reports: No symptoms Respiratory: Reports: No symptoms Cardiac: Reports: No symptoms GI: Reports: Nausea, Poor appetite : Reports: No symptoms Musculoskeletal: Reports: No symptoms Skin: Reports: No symptoms Neurological: Reports: Anxiety, Headache Endocrine: Reports: No symptoms Hematologic/Lymphatic: Reports: No symptoms All Other Systems: Reviewed and Negative Past Medical History - Past Medical History Previously Healthy: Yes Endocrine: Reports: Dyslipidemia Cardiovascular: Reports: None Respiratory: Reports: None Hematological: Reports: None Gastrointestinal: Reports: None Genitourinary: Reports: None Neuro/Psych: Reports: Depression Musculoskeletal: Reports: None Cancer: Reports: None Last Menstrual Period: HYSTERECTOMY - Surgical History General Surgical History: Reports: Hysterectomy, Cholecystectomy - Family History Family History: Reports: None - Social History Smoking Status: Current every day smoker Hx Substance Use: No Alcohol Screening: None - Immunizations Tetanus Shot up to Date: Yes Physical Exam - Physical Exam Appearance: Ill-appearing, Obese Pain Distress: Severe Eyes: SOFY, EOMI, Conjunctiva clear ENT: Ears normal, Nose normal, Oropharynx normal Respiratory: Airway patent, Breath sounds clear, Breath sounds equal, Respirations nonlabored Cardiovascular: RRR, Pulses normal, No rub, No murmur GI/: Soft, Nontender, No masses, Bowel sounds normal, No Organomegaly Musculoskeletal: Normal strength, ROM intact, No edema, No calf tenderness Skin: Warm, Dry, Normal color Neurological: Sensation intact, Motor intact, Reflexes intact, Cranial nerves intact, Alert, Oriented Psychiatric: Affect appropriate, Mood appropriate Re-Evaluation - Re-Evaluation Time of Re-Evaluation: 22:15 Status: Improved Vital Signs Stable: Yes Pain Level: headache gone Critical Care Note - Critical Care Note Total Time (mins): 0 Course - Course Orders, Labs, Meds: Orders Category Date Time Status Butorphanol Tartrate [Stadol] MEDS 01/18/18 21:44 Discontinued 2 mg IM ONCE STA Ondansetron [Zofran Odt] MEDS 01/18/18 21:39 Discontinued 4 mg PO ONCE STA Promethazine HCl [Phenergan 25 mg/ml Vial] MEDS 01/18/18 22:29 Discontinued 25 mg IM ONCE STA Medications Discontinued Medications Generic Name Dose Route Start Last Admin Trade Name Freq PRN Reason Stop Dose Admin Butorphanol Tartrate 2 mg 01/18/18 21:44 01/18/18 22:02 Stadol IM 01/18/18 21:45 2 mg ONCE STA Administration Ondansetron HCl 4 mg 01/18/18 21:39 01/18/18 22:02 Zofran Odt PO 01/18/18 21:40 4 mg ONCE STA Administration Promethazine HCl 25 mg 01/18/18 22:29 01/18/18 22:44 Phenergan 25 Mg/Ml Vial IM 01/18/18 22:30 25 mg ONCE STA Administration Vital Signs: Temp Pulse Resp BP Pulse Ox 01/18/18 21:27 97.8 F 94 H 16 145/83 H 96 Departure - Departure Time of Disposition: 22:31 Disposition: HOME SELF-CARE Discharge Problem: Headache Migraine headache Qualifiers: Migraine type: without aura Status migrainosus presence: without status migrainosus Intractability: not intractable Qualified Code(s): G43.009 - Migraine without aura, not intractable, without status migrainosus Instructions: Migraine Headache (ED) Condition: Stable Pt referred to PMD for follow-up: Yes IPMP verified?: No Additional Instructions: Take medications as prescribed Follow up with Neurologist soon Rest. Prescriptions: Promethazine HCl [Phenergan Tab] 25 mg PO Q6H PRN #15 tablet PRN Reason: Nausea / Vomiting Allergies/Adverse Reactions: Allergies marvin flavor Adverse Reaction (Verified 01/01/18 23:15) Swelling diltiazem HCl [From Cardizem] Adverse Reaction (Verified 01/01/18 23:15) Rash egg Adverse Reaction (Verified 01/01/18 23:15) Rash meperidine HCl [From Demerol] Adverse Reaction (Verified 01/01/18 23:15) Rash morphine Adverse Reaction (Verified 01/01/18 23:15) Rash oxycodone HCl [From Percocet] Adverse Reaction (Verified 01/01/18 23:15) Rash tramadol Adverse Reaction (Verified 01/01/18 23:15) Vomiting Home Medications: Ambulatory Orders Ibuprofen 600 mg PO QID PRN tab-cap 10/31/17 Aspirin/Acetaminophen/Caffeine [Excedrin Migraine Caplet] 1 each PO PRN Promethazine HCl [Phenergan Tab] 25 mg PO Q6H PRN #15 tablet 01/18/18 Disposition Discussed With: Patient, Family
[2018-01-18] MEDS ORDERED: PHENERGAN 25 MG/ML VIAL IM STA (22:29)
== END 2018-01-18 23:15 | disposition home or self-care (01) ==
LOC: ED 21:27
DX: G43.009 Migraine without aura, not intractable, without status migrainosus (principal); F17.210 Nicotine dependence, cigarettes, uncomplicated
CPT/HCPCS: 96372; 99282

== ENCOUNTER 2018-02-15 12:49 | Emergency (ER) ==
[2018-02-15 12:57] VITALS: BP 140/85; TEMP 97.6; BMI 40.6
[2018-02-15] MEDS ORDERED: PHENERGAN 25 MG/ML VIAL IM STA (13:14)
[2018-02-15] MEDS ORDERED: STADOL IM STA (13:14)
[2018-02-15] MEDS ORDERED: TORADOL IM STA (13:14)
--- NOTE | 2018-02-15 13:49 | CT ---
EXAM: CT BRAIN HISTORY: Headache TECHNIQUE: CT brain without intravenous contrast. 5-mm axial sections with Reformations. COMPARISON: 01/01/2018 FINDINGS: Brain is unremarkable without evidence of hemorrhage or large vessel distribution recent ischemic in farction. There is no suggestion of acute hydrocephalus or subdural fluid collection. No mass or ma ss effect. Cranium is within normal limits. Mastoid processes are aerated. The visualized paranasal sinuses a re clear. IMPRESSION: No acute intracranial process.
--- NOTE | 2018-02-15 13:53 | ED.PDOC ---
General ED Provider: Dr. FELY NÚÑEZ-ER Chief Complaint: Headache Stated Complaint: solitario had a migraine Time Seen by Physician: 12:55 Mode of Arrival: Walk-In Information Source: Patient Exam Limitations: No limitations [facility] Nursing and Triage Documentation Reviewed and Agree: Yes Reviewed sepsis parameters & appropriate labs ordered?: Yes System Inflammatory Response Syndrome: Not Applicable Sepsis Protocol: For patient's 13 years and over: Temp is 96.8 and below OR 101 and greater Pulse >90 BPM Resp >20/minute Acutely Altered Mental Status Are patient's symptoms suggestive of a new infection, such as: -Pneumonia -Skin, Soft Tissue -Endocarditis -UTI -Bone, Joint Infection -Implantable Device -Acute Abdominal Infection -Wound Infection -Meningitis -Blood Stream Catheter Infection -Unknown Neurological Complaint Exam - Headache Complaint/Exam Onset: Gradual Duration: 12 hrs Symptoms Are: Still present Timing: Constant Worst Headache Ever: No Initial Severity: Mild Current Severity: Moderate Location: Diffuse, Right, Temporal, Parietal Character: Reports: Dull, Throbbing, Pressure, Migraine Aggravating: Reports: Bright lights Alleviating: Reports: None Associated Signs and Symptoms: Denies: Dizziness, Seizure, Nausea, Vomiting, Sinus pressure, Fever, Neck pain, Neck stiffness, Decreased LOC, Visual changes Related History: Reports: Similar episode Related Surgical History: Reports: None Normal Head CT Within Last 12 Months: No Fundoscopic Exam: Present: Normal Findings Papilledema Present: No Temporal Artery Tenderness: Present: None Sinus Tenderness: Present: None TMJ Tenderness: Present: None Glascow Coma Scale (see protocol): 15 Meningeal Signs Positive: No Pain on Passive Flexion-Positive Kernig's: No ROM Limited In: No Limitiations Focal Weakness: Present: None Focal Sensory Loss: Present: None Gait: Normal Nystagmus Present: No Gag Reflex Present: Yes [id number]: Normal Findings Romberg Test Positive: No Babinski Sign: Negative Right, Negative Left Heel to Toe Normal: Yes Differential Diagnoses: Migraine Review of Systems - Review Of Systems Constitutional: Reports: No symptoms Eyes: Reports: No symptoms Ears, Nose, Mouth, Throat: Reports: No symptoms Respiratory: Reports: No symptoms Cardiac: Reports: No symptoms GI: Reports: No symptoms : Reports: No symptoms Musculoskeletal: Reports: No symptoms Skin: Reports: No symptoms Neurological: Reports: Headache Endocrine: Reports: No symptoms Hematologic/Lymphatic: Reports: No symptoms All Other Systems: Reviewed and Negative Past Medical History - Past Medical History Previously Healthy: Yes Endocrine: Reports: Dyslipidemia Cardiovascular: Reports: None Respiratory: Reports: None Hematological: Reports: None Gastrointestinal: Reports: None Genitourinary: Reports: None Neuro/Psych: Reports: Migraine, Depression Musculoskeletal: Reports: None Cancer: Reports: None Last Menstrual Period: hysterectomy - Surgical History General Surgical History: Reports: Hysterectomy, Cholecystectomy - Family History Family History: Reports: None - Social History Smoking Status: Current every day smoker Hx Substance Use: No Alcohol Screening: None Physical Exam - Physical Exam Appearance: Well-appearing, No pain distress, Well-nourished Eyes: SOFY ENT: Ears normal Neck: Supple Respiratory: Airway patent Cardiovascular: RRR GI/: Soft Musculoskeletal: Normal strength, ROM intact, No edema, No calf tenderness Skin: Warm Neurological: Alert, Oriented Psychiatric: Affect appropriate, Mood appropriate Interpretation - Radiology Interpretation Radiology Interpretation By: Radiologist Radiology Results: Negative Exam Interpreted: CT Scan Re-Evaluation - Re-Evaluation Time of Re-Evaluation: 13:54 Status: Improved (no change in speech or activity) Vital Signs Stable: Yes Pain Level: 0 Appearance: NAD Lungs: Clear Skin: Warm and Dry Neuro: Alert and Oriented X3 CV: RRR Critical Care Note - Critical Care Note Total Time (mins): 0 Course - Course Orders, Labs, Meds: Orders Category Date Time Status Butorphanol Tartrate [Stadol] MEDS 02/15/18 13:14 Discontinued 2 mg IM ONCE STA Ketorolac Tromethamine [Toradol] MEDS 02/15/18 13:14 Discontinued 60 mg IM ONCE STA Promethazine HCl [Phenergan 25 mg/ml Vial] MEDS 02/15/18 13:14 Discontinued 25 mg IM ONCE STA CT HEAD W/O CONTRAST Stat RADS 02/15/18 13:15 Completed Medications Discontinued Medications Generic Name Dose Route Start Last Admin Trade Name Freq PRN Reason Stop Dose Admin Butorphanol Tartrate 2 mg 02/15/18 13:14 02/15/18 13:29 Stadol IM 02/15/18 13:15 2 mg ONCE STA Administration Ketorolac Tromethamine 60 mg 02/15/18 13:14 02/15/18 13:30 Toradol IM 05/12/18 13:15 60 mg ONCE STA Administration Promethazine HCl 25 mg 02/15/18 13:14 02/15/18 13:31 Phenergan 25 Mg/Ml Vial IM 02/15/18 13:15 25 mg ONCE STA Administration Vital Signs: Temp Pulse Resp BP Pulse Ox 02/15/18 12:50 97.6 F 84 20 140/85 96 Departure - Departure Time of Disposition: 13:55 Disposition: HOME SELF-CARE Discharge Problem: Migraine headache Qualifiers: Migraine type: without aura Status migrainosus presence: without status migrainosus Intractability: not intractable Qualified Code(s): G43.009 - Migraine without aura, not intractable, without status migrainosus Instructions: Migraine Headache (ED) Condition: Good Pt referred to PMD for follow-up: Yes IPMP verified?: No Additional Instructions: f/u with pcp and keep appt with neurologist Allergies/Adverse Reactions: Allergies marvin flavor Adverse Reaction (Verified 02/15/18 12:58) Swelling diltiazem HCl [From Cardizem] Adverse Reaction (Verified 02/15/18 12:58) Rash egg Adverse Reaction (Verified 02/15/18 12:58) Rash meperidine HCl [From Demerol] Adverse Reaction (Verified 02/15/18 12:58) Rash morphine Adverse Reaction (Verified 02/15/18 12:58) Rash oxycodone HCl [From Percocet] Adverse Reaction (Verified 02/15/18 12:58) Rash tramadol Adverse Reaction (Verified 02/15/18 12:58) Vomiting Home Medications: Ambulatory Orders Aspirin/Acetaminophen/Caffeine [Excedrin Migraine Caplet] 1 each PO PRN Disposition Discussed With: Patient, Family
== END 2018-02-15 14:00 | disposition home or self-care (01) ==
LOC: ED 12:49
DX: G43.009 Migraine without aura, not intractable, without status migrainosus (principal); F17.210 Nicotine dependence, cigarettes, uncomplicated
CPT/HCPCS: 96372; 99283

== ENCOUNTER 2018-02-25 08:18 | Outpatient (CLI) | END 2018-02-25 08:19 | disposition home or self-care (01) | LOC: LAB 08:18 | PROVIDERS: ATTEND Psychiatry & Neurology Neurology | DX: R51 Headache (principal) | CPT/HCPCS: 36415; 80053; 80061; 82607; 82746; 83735; 84439; 85025; 85651 ==

== ENCOUNTER 2018-03-16 20:47 | Emergency (ER) ==
[2018-03-16 20:55] VITALS: TEMP 98.4; BMI 42.1
--- NOTE | 2018-03-16 21:08 | ED.PDOC ---
General ED Provider: Dr. FELY NÚÑEZ-ER Chief Complaint: Headache Stated Complaint: solitario got a migraine Time Seen by Physician: 21:07 Mode of Arrival: Walk-In Information Source: Patient Exam Limitations: No limitations Primary Care Provider: [facility] Nursing and Triage Documentation Reviewed and Agree: Yes Reviewed sepsis parameters & appropriate labs ordered?: Yes System Inflammatory Response Syndrome: Not Applicable Sepsis Protocol: For patient's 13 years and over: Temp is 96.8 and below OR 101 and greater Pulse >90 BPM Resp >20/minute Acutely Altered Mental Status Are patient's symptoms suggestive of a new infection, such as: -Pneumonia -Skin, Soft Tissue -Endocarditis -UTI -Bone, Joint Infection -Implantable Device -Acute Abdominal Infection -Wound Infection -Meningitis -Blood Stream Catheter Infection -Unknown Neurological Complaint Exam - Headache Complaint/Exam Onset: Gradual Duration: several hours Symptoms Are: Still present Timing: Constant Episodes Lasting: Hours Worst Headache Ever: No Initial Severity: Mild Current Severity: Moderate Location: Left, Temporal, Parietal, Occipital Character: Reports: Dull, Throbbing, Pressure, Typical headache, Migraine Aggravating: Reports: Bright lights Alleviating: Reports: None Associated Signs and Symptoms: Reports: Nausea, Vomiting. Denies: Dizziness, Seizure, Sinus pressure, Fever, Neck pain, Neck stiffness Related History: Reports: Similar episode (feels like usual headache). Denies: Recent trauma, Remote trauma Related Surgical History: Reports: None Normal Head CT Within Last 12 Months: Yes (per the patients hx) Fundoscopic Exam: Present: Normal Findings Papilledema Present: No Temporal Artery Tenderness: Present: None Sinus Tenderness: Present: None TMJ Tenderness: Present: None Glascow Coma Scale (see protocol): 15 Meningeal Signs Positive: No Pain on Passive Flexion-Positive Kernig's: No ROM Limited In: No Limitiations Focal Weakness: Present: None Focal Sensory Loss: Present: None Gait: Normal Nystagmus Present: No Gag Reflex Present: Yes [id number]: Normal Findings Romberg Test Positive: No Babinski Sign: Negative Right, Negative Left Heel to Toe Normal: Yes Differential Diagnoses: Migraine Review of Systems - Review Of Systems Constitutional: Reports: No symptoms Eyes: Reports: No symptoms Ears, Nose, Mouth, Throat: Reports: No symptoms Respiratory: Reports: No symptoms Cardiac: Reports: No symptoms GI: Reports: Nausea : Reports: No symptoms Musculoskeletal: Reports: No symptoms Skin: Reports: No symptoms Neurological: Reports: Headache Endocrine: Reports: No symptoms Hematologic/Lymphatic: Reports: No symptoms All Other Systems: Reviewed and Negative Past Medical History - Past Medical History Previously Healthy: Yes Endocrine: Reports: Dyslipidemia Cardiovascular: Reports: None Respiratory: Reports: None Hematological: Reports: None Gastrointestinal: Reports: None Genitourinary: Reports: None Neuro/Psych: Reports: Migraine, Depression Musculoskeletal: Reports: None Cancer: Reports: None Last Menstrual Period: 2002 - Surgical History General Surgical History: Reports: Hysterectomy, Cholecystectomy - Family History Family History: Reports: None - Social History Smoking Status: Current every day smoker, Heavy tobacco smoker Hx Substance Use: No Alcohol Screening: Occasionally - Immunizations Tetanus Shot up to Date: Yes Physical Exam - Physical Exam Appearance: Well-appearing, No pain distress, Well-nourished Pain Distress: Moderate Eyes: SOFY, EOMI, Conjunctiva clear ENT: Ears normal, Nose normal, Oropharynx normal Neck: Supple Respiratory: Airway patent, Breath sounds clear, Breath sounds equal, Respirations nonlabored Cardiovascular: RRR, Pulses normal, No rub, No murmur GI/: Soft, Nontender, No masses, Bowel sounds normal, No Organomegaly Musculoskeletal: Normal strength, ROM intact, No edema, No calf tenderness Skin: Warm, Dry, Normal color Neurological: Sensation intact, Motor intact, Reflexes intact, Cranial nerves intact, Alert, Oriented Psychiatric: Affect appropriate, Mood appropriate Re-Evaluation - Re-Evaluation Time of Re-Evaluation: 21:45 Status: Improved Vital Signs Stable: Yes Pain Level: 1 Appearance: NAD Lungs: Clear Skin: Warm and Dry Neuro: Alert and Oriented X3 CV: RRR Critical Care Note - Critical Care Note Total Time (mins): 0 Course - Course Orders, Labs, Meds: Orders Category Date Time Status Butorphanol Tartrate [Stadol] MEDS 03/16/18 21:05 Discontinued 2 mg IM ONCE STA Ketorolac Tromethamine [Toradol] MEDS 03/16/18 21:05 Discontinued 60 mg IM ONCE STA Promethazine HCl [Phenergan 25 mg/ml Vial] MEDS 03/16/18 21:05 Discontinued 25 mg IM ONCE STA Medications Discontinued Medications Generic Name Dose Route Start Last Admin Trade Name Freq PRN Reason Stop Dose Admin Butorphanol Tartrate 2 mg 03/16/18 21:05 Stadol IM 03/16/18 21:06 ONCE STA Ketorolac Tromethamine 60 mg 03/16/18 21:05 Toradol IM 03/16/18 21:06 ONCE STA Promethazine HCl 25 mg 03/16/18 21:05 Phenergan 25 Mg/Ml Vial IM 03/16/18 21:06 ONCE STA Vital Signs: Temp Pulse Resp BP Pulse Ox 03/16/18 20:48 98.4 F 99 H 18 158/91 H 36 L Departure - Departure Time of Disposition: 21:10 Disposition: HOME SELF-CARE Discharge Problem: Migraine Qualifiers: Migraine type: unspecified Status migrainosus presence: without status migrainosus Intractability: not intractable Qualified Code(s): G43.909 - Migraine, unspecified, not intractable, without status migrainosus Instructions: Migraine Headache (ED) Condition: Good Pt referred to PMD for follow-up: Yes IPMP verified?: No Additional Instructions: f/u with pcp and neurology Allergies/Adverse Reactions: Allergies marvin flavor Adverse Reaction (Verified 03/16/18 20:52) Swelling diltiazem HCl [From Cardizem] Adverse Reaction (Verified 03/16/18 20:52) Rash egg Adverse Reaction (Verified 03/16/18 20:52) Rash meperidine HCl [From Demerol] Adverse Reaction (Verified 03/16/18 20:52) Rash morphine Adverse Reaction (Verified 03/16/18 20:52) Rash oxycodone HCl [From Percocet] Adverse Reaction (Verified 03/16/18 20:52) Rash tramadol Adverse Reaction (Verified 03/16/18 20:52) Vomiting Home Medications: Ambulatory Orders Aspirin/Acetaminophen/Caffeine [Excedrin Migraine Caplet] 1 each PO PRN Disposition Discussed With: Patient, Family
[2018-03-16] MEDS: STADOL IM STA (21:17)
[2018-03-16] MEDS: PHENERGAN 25 MG/ML VIAL IM STA (21:19)
[2018-03-16] MEDS: TORADOL IM STA (21:20)
[2018-03-16 21:48] VITALS: BP 126/64
== END 2018-03-16 21:50 | disposition home or self-care (01) ==
LOC: ED 20:47
DX: G43.909 Migraine, unspecified, not intractable, without status migrainosus (principal); F17.210 Nicotine dependence, cigarettes, uncomplicated
CPT/HCPCS: 96372; 99283

== ENCOUNTER 2018-03-26 23:04 | Emergency (ER) ==
[2018-03-26 23:07] VITALS: BP 162/99; TEMP 98; BMI 42.0
[2018-03-26] MEDS ORDERED: DECADRON 4 MG/ML SDV IM STA (23:09)
[2018-03-26] MEDS ORDERED: PHENERGAN 25 MG/ML VIAL IM STA (23:10)
[2018-03-26] MEDS ORDERED: DILAUDID IM STA (23:10)
--- NOTE | 2018-03-26 23:13 | ED.PDOC ---
General ED Provider: Dr. FELY NÚÑEZ-ER Chief Complaint: Back Pain Stated Complaint: my back hurts and it runs down the left leg Time Seen by Physician: 23:11 Mode of Arrival: Walk-In Information Source: Patient, Family Exam Limitations: No limitations Primary Care Provider: BRAYAN JENKINS-[facility] Nursing and Triage Documentation Reviewed and Agree: Yes Reviewed sepsis parameters & appropriate labs ordered?: Yes System Inflammatory Response Syndrome: Not Applicable Sepsis Protocol: For patient's 13 years and over: Temp is 96.8 and below OR 101 and greater Pulse >90 BPM Resp >20/minute Acutely Altered Mental Status Are patient's symptoms suggestive of a new infection, such as: -Pneumonia -Skin, Soft Tissue -Endocarditis -UTI -Bone, Joint Infection -Implantable Device -Acute Abdominal Infection -Wound Infection -Meningitis -Blood Stream Catheter Infection -Unknown Musculoskeletal Complaint Exam - Back Pain Complaint/Exam Mechanism of Injury: Reports: No known trauma Onset/Duration: 24 hrs Symptoms Are: Still present Timing: Constant Episodes Lasting: Hours Initial Severity: Mild Current Severity: Moderate Location: Reports: Discrete Character: Reports: Dull, Aching, Spasmodic Aggravating: Reports: Movements, Lifting, Bending, Walking Alleviating: Reports: None Associated Signs and Symptoms: Denies: Swelling, Redness, Bruising, Fever, Weakness, Numbness, Tingling, Abdominal pain, Flank pain, Bladder incontinence, Bowel incontinence, Weight loss, Pain with weight bearing Focal Tenderness: Yes Paraspinal Muscle Tenderness: Yes Paraspinal Muscle Spasm: No Scoliosis: No Lordosis: No Kyphosis: No SLR Test: Right Negative, Left Negative Hip Motion Testing Pain: Right Negative, Left Negative Focal Weakness: Present: None Focal Sensory Loss: Present: None Gait: Present: Abnormal Differential Diagnoses: Herniated Disk, Strain, Sprain Review of Systems - Review Of Systems Constitutional: Reports: No symptoms Eyes: Reports: No symptoms Ears, Nose, Mouth, Throat: Reports: No symptoms Respiratory: Reports: No symptoms Cardiac: Reports: No symptoms GI: Reports: No symptoms : Reports: No symptoms Musculoskeletal: Reports: Back pain, Muscle pain Skin: Reports: No symptoms Neurological: Reports: No symptoms Endocrine: Reports: No symptoms Hematologic/Lymphatic: Reports: No symptoms All Other Systems: Reviewed and Negative Past Medical History - Past Medical History Previously Healthy: Yes Endocrine: Reports: Dyslipidemia Cardiovascular: Reports: None Respiratory: Reports: None Hematological: Reports: None Gastrointestinal: Reports: None Genitourinary: Reports: None Neuro/Psych: Reports: Migraine, Depression Musculoskeletal: Reports: None Cancer: Reports: None Last Menstrual Period: NONE - Surgical History General Surgical History: Reports: Hysterectomy, Cholecystectomy - Family History Family History: Reports: None - Social History Smoking Status: Current every day smoker, Heavy tobacco smoker Hx Substance Use: No Alcohol Screening: None - Immunizations Tetanus Shot up to Date: Yes Physical Exam - Physical Exam Appearance: Well-appearing, No pain distress, Well-nourished Pain Distress: Moderate Eyes: SOFY ENT: Ears normal, Nose normal, Oropharynx normal Neck: Supple Respiratory: Airway patent, Breath sounds clear, Breath sounds equal, Respirations nonlabored Cardiovascular: RRR, Pulses normal, No rub, No murmur GI/: Soft, Nontender, No masses, Bowel sounds normal, No Organomegaly Musculoskeletal: Limited ROM Skin: Warm Neurological: Sensation intact Psychiatric: Affect appropriate, Mood appropriate Interpretation - Radiology Interpretation Radiology Interpretation By: Radiologist Radiology Results: Negative Exam Interpreted: CT Scan Critical Care Note - Critical Care Note Total Time (mins): 0 Course - Course Orders, Labs, Meds: Orders Category Date Time Status Dexamethasone 4 mg/ml Inj [Decadron 4 mg/ml Sdv] MEDS 03/26/18 23:09 Discontinued 4 mg IM ONCE STA Hydromorphone HCl [Dilaudid] MEDS 03/26/18 23:10 Discontinued 2 mg IM ONCE STA Promethazine HCl [Phenergan 25 mg/ml Vial] MEDS 03/26/18 23:10 Discontinued 25 mg IM ONCE STA CT LUMBAR SPINE W/O CONTRAST Stat RADS 03/26/18 23:10 Completed Medications Discontinued Medications Generic Name Dose Route Start Last Admin Trade Name Freq PRN Reason Stop Dose Admin Dexamethasone Sodium Phosphate 4 mg 03/26/18 23:09 03/26/18 23:17 Decadron 4 Mg/Ml Sdv IM 03/26/18 23:10 4 mg ONCE STA Administration Hydromorphone HCl 2 mg 03/26/18 23:10 03/26/18 23:16 Dilaudid IM 03/26/18 23:11 2 mg ONCE STA Administration Promethazine HCl 25 mg 03/26/18 23:10 03/26/18 23:16 Phenergan 25 Mg/Ml Vial IM 03/26/18 23:11 25 mg ONCE STA Administration Vital Signs: Temp Pulse Resp BP Pulse Ox 03/26/18 23:04 98 F 101 H 17 162/99 H 97 Departure - Departure Time of Disposition: 00:22 Disposition: HOME SELF-CARE Discharge Problem: Low back pain Qualifiers: Chronicity: acute Back pain laterality: midline Sciatica presence: unspecified whether sciatica present Qualified Code(s): M54.5 - Low back pain Instructions: Low Back Strain (ED) Condition: Good Pt referred to PMD for follow-up: Yes IPMP verified?: No Additional Instructions: f/u with pcp Allergies/Adverse Reactions: Allergies marvin flavor Adverse Reaction (Verified 03/16/18 20:52) Swelling diltiazem HCl [From Cardizem] Adverse Reaction (Verified 03/16/18 20:52) Rash egg Adverse Reaction (Verified 03/16/18 20:52) Rash meperidine HCl [From Demerol] Adverse Reaction (Verified 03/16/18 20:52) Rash morphine Adverse Reaction (Verified 03/16/18 20:52) Rash oxycodone HCl [From Percocet] Adverse Reaction (Verified 03/16/18 20:52) Rash tramadol Adverse Reaction (Verified 03/16/18 20:52) Vomiting Home Medications: Ambulatory Orders Aspirin/Acetaminophen/Caffeine [Excedrin Migraine Caplet] 1 each PO PRN Disposition Discussed With: Patient, Family
--- NOTE | 2018-03-27 | CT ---
EXAM: CT of the lumbar spine without contrast. HISTORY: Low back pain with left radiculopathy. PROCEDURE: Contiguous axial CT images of the lumbar spine without contrast with coronal and sagittal reformats. FINDINGS: There is normal alignment of the lumbar vertebral bodies and facets. The vertebral body heights and intervertebral disc spaces are maintained. No paravertebral soft tissue abnormalities. Impression: Negative lumbar spine.
== END 2018-03-27 00:27 | disposition home or self-care (01) ==
LOC: ED 23:04
DX: M54.5 Low back pain (principal); F17.210 Nicotine dependence, cigarettes, uncomplicated
CPT/HCPCS: 96372; 99282

== ENCOUNTER 2018-03-30 12:54 | Emergency (ER) ==
[2018-03-30 12:54] VITALS: BMI 42.0
[2018-03-30 12:57] VITALS: BP 160/89; TEMP 99
[2018-03-30] MEDS ORDERED: DECADRON 4 MG/ML SDV IM STA (13:12)
[2018-03-30] MEDS ORDERED: ROBITUSSIN AC SYRUP PO STA (13:12)
--- NOTE | 2018-03-30 13:14 | ED.PDOC ---
General ED Provider: Dr. BRAYAN JENKINS Chief Complaint: Sore Throat Stated Complaint: Came for the coughing, congesting, started like sore throat. hurts to breath Time Seen by Physician: 13:12 Mode of Arrival: Walk-In Information Source: Patient Primary Care Provider: BRAYAN JENKINS-[facility] Nursing and Triage Documentation Reviewed and Agree: Yes Does patient meet sepsis criteria?: No If yes, has appropriate treatment been initiated?: No System Inflammatory Response Syndrome: Not Applicable Sepsis Protocol: For patient's 13 years and over: Temp is 96.8 and below OR 101 and greater Pulse >90 BPM Resp >20/minute Acutely Altered Mental Status Are patient's symptoms suggestive of a new infection, such as: -Pneumonia -Skin, Soft Tissue -Endocarditis -UTI -Bone, Joint Infection -Implantable Device -Acute Abdominal Infection -Wound Infection -Meningitis -Blood Stream Catheter Infection -Unknown Respiratory Complaint Exam - Respiratory Complaint/Exam Symptoms Are: Still present Timing: Constant Initial Severity: Mild Current Severity: Mild Location: Nose, Throat, Chest Character: Reports: Productive cough Aggravating: Reports: Allergens, URI Alleviating: Reports: None Associated Signs and Symptoms: Reports: URI, Nasal congestion, Hoarseness. Denies: Rapid breathing, Dyspnea, Fever, Chills, Chest pain, Pleuritic chest pain, Wheezing, Hemoptysis, Dizziness, Calf pain, Calf swelling, Edema, Sinus discomfort, Vomiting, Sore throat, Weight loss, Decreased oral intake, Increased thirst, Increased appetite, Increased urination Related History: Reports: Similar episode History of Healthcare-Acquired Pneumonia: No Related Surgical History: Reports: None Pulmonary Embolism Risk Factors: None Cardiac Risk Factors: Reports: None Pseudomonas Risk Factors: Reports: None Tuberculosis Risk Factors: Reports: None Status Asthmaticus Risk Factors: Reports: None Home Oxygen Use: No Recent Stress Test: No Recent Echo/LV Function: No Current Antibiotic Use: No Current Asthma Medication Use: No Respiratory Distress: None Inadequate Respiratory Effort: No Dysphagia Present: No Stridor Present: No JVD Present: No Accessory Muscle Use: No Retractions: Not Present Diminished Breath Sounds: Yes Differential Diagnoses: Bronchitis Review of Systems - Review Of Systems Constitutional: Reports: No symptoms Eyes: Reports: No symptoms Ears, Nose, Mouth, Throat: Reports: Throat pain Respiratory: Reports: Cough Cardiac: Reports: No symptoms GI: Reports: No symptoms : Reports: No symptoms Musculoskeletal: Reports: No symptoms Skin: Reports: No symptoms Neurological: Reports: No symptoms Endocrine: Reports: No symptoms Hematologic/Lymphatic: Reports: No symptoms All Other Systems: Reviewed and Negative Past Medical History - Past Medical History Previously Healthy: Yes Endocrine: Reports: Dyslipidemia Cardiovascular: Reports: None Respiratory: Reports: None Hematological: Reports: None Gastrointestinal: Reports: None Genitourinary: Reports: None Neuro/Psych: Reports: Migraine, Depression Musculoskeletal: Reports: None Cancer: Reports: None Last Menstrual Period: n/a - Surgical History General Surgical History: Reports: Hysterectomy, Cholecystectomy - Family History Family History: Reports: None - Social History Smoking Status: Current every day smoker, Heavy tobacco smoker Smoking Cessation Counseling Time: > 3 min - 10 min Hx Substance Use: No Alcohol Screening: None Physical Exam - Physical Exam Appearance: Ill-appearing, Obese Ill-appearing: Mild Eyes: SOFY, EOMI, Conjunctiva clear ENT: Ears normal, Nose normal, Erythema Respiratory: Airway patent, Breath sounds clear, Breath sounds equal, Respirations nonlabored Cardiovascular: RRR, Pulses normal, No rub, No murmur GI/: Soft, Nontender, No masses, Bowel sounds normal, No Organomegaly Musculoskeletal: Normal strength, ROM intact, No edema, No calf tenderness Skin: Warm, Dry, Normal color Neurological: Sensation intact, Motor intact, Reflexes intact, Cranial nerves intact, Alert, Oriented Psychiatric: Affect appropriate, Mood appropriate Interpretation - Radiology Interpretation Radiology Interpretation By: ED Physician Radiology Results: Negative Exam Interpreted: CXR Re-Evaluation - Re-Evaluation Time of Re-Evaluation: 13:42 Status: Improved Critical Care Note - Critical Care Note Total Time (mins): 30 Course - Course Orders, Labs, Meds: Orders Category Date Time Status MOLECULAR GROUP A STREP Stat LAB 03/30/18 13:23 Completed Dexamethasone 4 mg/ml Inj [Decadron 4 mg/ml Sdv] MEDS 03/30/18 13:12 Discontinued 4 mg IM ONCE STA Guaifenesin/Codeine Phosphate [Robitussin AC Syrup] MEDS 03/30/18 13:12 Discontinued 10 ml PO ONCE STA CHEST, 2 VIEWS PA & LAT Stat RADS 03/30/18 13:05 Taken Medications Discontinued Medications Generic Name Dose Route Start Last Admin Trade Name Freq PRN Reason Stop Dose Admin Dexamethasone Sodium Phosphate 4 mg 03/30/18 13:12 06/24/18 13:33 Decadron 4 Mg/Ml Sdv IM 03/30/18 13:13 4 mg ONCE STA Administration Guaifenesin/Codeine Phosphate 10 ml 03/30/18 13:12 03/30/18 13:34 Robitussin Ac Syrup PO 03/30/18 13:13 10 ml ONCE STA Administration Vital Signs: Temp Pulse Resp BP Pulse Ox 03/30/18 12:54 99.0 F 98 H 16 160/89 H 95 Departure - Departure Time of Disposition: 13:12 Disposition: HOME SELF-CARE Discharge Problem: URTI (acute upper respiratory infection) Instructions: Upper Respiratory Infection (ED) Condition: Stable Pt referred to PMD for follow-up: Yes IPMP verified?: No Additional Instructions: Increase Hydration probitics Tylenol prn F/u in [facility] in 3-4 days Prescriptions: Cephalexin [Keflex] 500 mg PO Q12HR #14 capsule Guaifenesin/Codeine Phosphate [Robitussin AC Syrup] 10 ml PO Q6H #1 bottle Prednisone 10 mg PO BIDWM #14 tablet Allergies/Adverse Reactions: Allergies marvin flavor Adverse Reaction (Verified 03/30/18 12:56) Swelling diltiazem HCl [From Cardizem] Adverse Reaction (Verified 03/30/18 12:56) Rash egg Adverse Reaction (Verified 03/30/18 12:56) Rash meperidine HCl [From Demerol] Adverse Reaction (Verified 03/30/18 12:56) Rash morphine Adverse Reaction (Verified 03/30/18 12:56) Rash oxycodone HCl [From Percocet] Adverse Reaction (Verified 03/30/18 12:56) Rash tramadol Adverse Reaction (Verified 03/30/18 12:56) Vomiting Home Medications: Ambulatory Orders Aspirin/Acetaminophen/Caffeine [Excedrin Migraine Caplet] 1 each PO PRN Cephalexin [Keflex] 500 mg PO Q12HR #14 capsule 03/30/18 Guaifenesin/Codeine Phosphate [Robitussin AC Syrup] 10 ml PO Q6H #1 bottle 03/30 Prednisone 10 mg PO BIDWM #14 tablet 03/30/18 Disposition Discussed With: Patient
--- NOTE | 2018-03-30 14:07 | DI ---
Exam: Two views of the chest. Comparison: 02/15/2009. Reason for exam: Cough. FINDINGS: No pneumothorax, pleural effusion, or focal consolidation. The cardiac silhouette is not enlarged. The imaged osseous structures appear grossly unremarkable without acute fracture. Impression: No acute cardiopulmonary process.
== END 2018-03-30 13:50 | disposition home or self-care (01) ==
LOC: ED 12:54
DX: J06.9 Acute upper respiratory infection, unspecified (principal); F17.210 Nicotine dependence, cigarettes, uncomplicated
CPT/HCPCS: 87651; 96372; 99283

== ENCOUNTER 2018-04-30 21:30 | Emergency (ER) ==
[2018-04-30 21:44] VITALS: BMI 10760.3
[2018-04-30] MEDS ORDERED: DILAUDID 2 MG/ML SYRINGE IM STA (22:02)
--- NOTE | 2018-04-30 22:56 | ED.PDOC ---
General ED Provider: Dr. DIRK LANGE Chief Complaint: Headache Stated Complaint: Patient is a 42 year old female who states that she has a history of cervical spinal stenosis and has been getting therapy for it. She is following up with orthopedics soon. She states that she had thereapy today where she had it streached. Since then the pain has gotten worse. She has tried all the medications she has at home, including imitrex and flexeril without any relief. She she does not think it is her migranes. Time Seen by Physician: 21:40 Mode of Arrival: Walk-In Information Source: Patient Primary Care Provider: [facility] Nursing and Triage Documentation Reviewed and Agree: Yes Does patient meet sepsis criteria?: No If yes, has appropriate treatment been initiated?: No System Inflammatory Response Syndrome: Not Applicable Sepsis Protocol: For patient's 13 years and over: Temp is 96.8 and below OR 101 and greater Pulse >90 BPM Resp >20/minute Acutely Altered Mental Status Are patient's symptoms suggestive of a new infection, such as: -Pneumonia -Skin, Soft Tissue -Endocarditis -UTI -Bone, Joint Infection -Implantable Device -Acute Abdominal Infection -Wound Infection -Meningitis -Blood Stream Catheter Infection -Unknown Review of Systems - Review Of Systems Constitutional: Reports: No symptoms Eyes: Reports: No symptoms Ears, Nose, Mouth, Throat: Reports: No symptoms Respiratory: Reports: No symptoms Cardiac: Reports: No symptoms GI: Reports: No symptoms : Reports: No symptoms Musculoskeletal: Reports: Neck pain Skin: Reports: No symptoms Neurological: Reports: Anxiety, Headache Endocrine: Reports: No symptoms Hematologic/Lymphatic: Reports: No symptoms All Other Systems: Reviewed and Negative Past Medical History - Past Medical History Previously Healthy: Yes Endocrine: Reports: Dyslipidemia Cardiovascular: Reports: None Respiratory: Reports: None Hematological: Reports: None Gastrointestinal: Reports: None Genitourinary: Reports: None Neuro/Psych: Reports: Migraine, Depression Musculoskeletal: Reports: None Cancer: Reports: None Last Menstrual Period: PT HAS HAD A HYSTERECTOMY - Surgical History General Surgical History: Reports: Hysterectomy, Cholecystectomy - Family History Family History: Reports: None - Social History Smoking Status: Former smoker Hx Substance Use: No Alcohol Screening: None Physical Exam - Physical Exam Appearance: Ill-appearing, Obese Ill-appearing: Moderate Pain Distress: Severe Eyes: SOFY, EOMI, Conjunctiva clear Neck: Supple Respiratory: Airway patent, Breath sounds clear, Breath sounds equal, Respirations nonlabored Cardiovascular: RRR, Pulses normal, No rub, No murmur GI/: Soft, Nontender, No masses, Bowel sounds normal, No Organomegaly Musculoskeletal: Normal strength, ROM intact, No edema, No calf tenderness Skin: Warm, Dry, Normal color Neurological: Sensation intact, Motor intact, Reflexes intact, Cranial nerves intact, Alert, Oriented Psychiatric: Anxious Critical Care Note - Critical Care Note Total Time (mins): 0 Course - Course Orders, Labs, Meds: Orders Category Date Time Status Hydromorphone HCl/Pf [Dilaudid 2 mg/ml Syringe] MEDS 04/30/18 22:02 Discontinued 1.5 mg IM ONCE STA Medications Discontinued Medications Generic Name Dose Route Start Last Admin Trade Name Freq PRN Reason Stop Dose Admin Hydromorphone HCl 1.5 mg 04/30/18 22:02 04/30/18 22:14 Dilaudid 2 Mg/Ml Syringe IM 04/30/18 22:03 1.5 mg ONCE STA Administration Vital Signs: Temp Pulse Resp BP Pulse Ox 04/30/18 21:31 97.9 F 94 H 20 142/86 H 97 Departure - Departure Time of Disposition: 22:57 Disposition: HOME SELF-CARE Discharge Problem: Neck pain, Tension headache Instructions: Neck Pain (ED), Tension Headache (ED) Condition: Stable Pt referred to PMD for follow-up: Yes IPMP verified?: No Additional Instructions: continue home medications Follow up with PCP in 3 days Allergies/Adverse Reactions: Allergies marvin flavor Adverse Reaction (Verified 04/30/18 21:45) Swelling diltiazem HCl [From Cardizem] Adverse Reaction (Verified 04/30/18 21:45) Rash egg Adverse Reaction (Verified 04/30/18 21:45) Rash meperidine HCl [From Demerol] Adverse Reaction (Verified 04/30/18 21:45) Rash morphine Adverse Reaction (Verified 04/30/18 21:45) Rash oxycodone HCl [From Percocet] Adverse Reaction (Verified 04/30/18 21:45) Rash tramadol Adverse Reaction (Verified 04/30/18 21:45) Vomiting Home Medications: Ambulatory Orders Aspirin/Acetaminophen/Caffeine [Excedrin Migraine Caplet] 1 tab PO DAILY PRN Butalb/Acetaminophen/Caffeine [Fioricet 50-300-40 mg Capsule] 1 cap PO BID PRN 04/30/18 Cyclobenzaprine HCl [Flexeril] 5 mg PO BID PRN 04/30/18 Famotidine/Ca Carb/Mag Hydrox [Pepcid Complete Tablet Chew] 1 each PO DAILY PRN 04/30/18 Topiramate [Trokendi Xr] 100 mg PO DAILY 04/30/18
[2018-04-30 23:09] VITALS: BP 133/82; TEMP 97.4
== END 2018-04-30 23:11 | disposition home or self-care (01) ==
LOC: ED 21:30
DX: M54.2 Cervicalgia (principal); G44.209 Tension-type headache, unspecified, not intractable
CPT/HCPCS: 96372; 99283

== ENCOUNTER 2018-05-06 09:00 | Outpatient (RCR) ==
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
--- NOTE | 2018-04-24 10:41 | RS.OPPTDN ---
Subjective Date of Note: 04/24/18 Visit #: 2 Date of Evaluation: 04/22/18 Payer Source: Insurance Treatment Diagnosis: Cervicalgia, headaches Current Subjective/complaints:: Patient says she had elevated neck pain following her eval session. She says her pain was so bad that she cried. She used ice/heat alternately at home. She wishes not to try traction today, but is open to try again next session allowing time in between to rest. - Treatment Modality: Ultrasound Parameters/Method Applied: continuous @ 1.5 w/cm2 x 10 mins bilateral UT Patient Position: Sitting - Heat/Cryotherapy Treatment: Hot Pack (cervical in supine x 20 mins) Interventions - Exercise/Activities/Manual Therapy Exercises/Activities: Patient was educated on benefits of traction and discussed waiting until next session to resume. Explained u/s and its benefits/ implications. Patient review of HEP, pain management. Manual Therapy: Na HOME EXERCISE PROGRAM: pec major stretch (corner stretch), scapular retraction, and gentle cervical retraction for HEP. - Charges Timed Code Treatment Minutes: 20 Total Treatment Time: 40 Procedures billed for this date of service:: hp, u/s Assessment: Patient presents with increased muscle guarding throughout bilateral UT. No obvious swelling noted to UT/SCM as patient admits to having intermittently with migraines. Tone is equal bilaterally today. Decided to await progression of traction until next session due to having elevation in pain following first session. She has been compliant with HEP and using ice/ heat to relieve symptoms. She did admit improved pain and flexibility following ultrasound today. Patient Education: Education of diagnosis, Home Exercise Program, Education of Plan of Care Patient demonstrates compliance with HEP?: Yes Short Term Goals Goal #1: Pt independent and compliant with HEP. Goal to be met by: 05/06/18 Progress towards Goal:: Progressing Goal #2: Muscle tone of bilateral upper traps decreased to minimal. Goal to be met by: 05/06/18 Progress towards Goal:: Progressing Goal #3: Pt will demonstrate good postural awareness. Goal to be met by: 05/06/18 Goal #4: Cervical radiating symptoms decreased to occasional. Goal to be met by: 05/06/18 Petroleum Inspector Supervisor Goals Goal #1: Pt knows HEP and to continue ex's to maintain functional level at D/c. Goal to be met by: 06/01/18 Goal #2: Score on Neck Disability index improved to less than 30% impairment. 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 Goal to be met by: 06/01/18 Goal #4: Pt able to sleep 6 hours without interruption from neck or head pain. Goal to be met by: 06/01/18 Plan PLAN OF CARE EXPIRES ON:: 06/01/18 ORDER # VISITS AND/OR THROUGH DATE: 06/01/18 PLAN: Patient to continue TIW for modalities, resuming traction slowly, and therex.
--- NOTE | 2018-04-29 16:01 | RS.OPPTDN ---
Subjective Date of Note: 04/29/18 Visit #: 3 Date of Evaluation: 04/22/18 Payer Source: Insurance Treatment Diagnosis: Cervicalgia, headaches Current Subjective/complaints:: Patient says pain has eased from last week. She says ultrasound seemed to relieve her neck pain at last session. She states a lot of her pain is derived from fibromyalgia and it is hard to differentiate at times. She remains apprehensive about trying traction, but expresses she wants to try. Pain Assessment - Pain Description Pain Location: R side of neck and occiput - Treatment Modality: Ultrasound Parameters/Method Applied: continuous @ 1.5 w/cm2 x 12 mins to the R UT and along the mid cervical paraspinals after trying traction. Patient Position: Sitting - Heat/Cryotherapy Treatment: Hot Pack (20 mins cervical in sitting) - Traction Treatment Method: Mechanical, Intermittent, Cervical Patient Position: Supine Amount of Force Applied: 13 Hold Time: 25 Rest Time: 5 Duration of treatment: 2 Traction Treatment Comment: Patient only able to thanh 2 mins of traction due to it causing pain at the occiput. Discontinued so that we may perform u/s. Interventions - Exercise/Activities/Manual Therapy Exercises/Activities: Patient received passive cervical motion in SB and rotation. She performs shoulder shrugs and scap adduction after MT. Manual Therapy: STM throughout the R UT and scapular region, light trigger point work x 14 mins. HOME EXERCISE PROGRAM: pec major stretch (corner stretch), scapular retraction, and gentle cervical retraction for HEP. - Charges Timed Code Treatment Minutes: 26 Total Treatment Time: 48 Procedures billed for this date of service:: hp, u/s, MT Assessment: Patient presents with elevated pain admitting she had difficulty sleeping last night due and may have slept "wrong." She has continued difficulty thanh low level mechanical cervical traction. We will possibly try once more due to patient request. If unsuccessful, will discontinue and resume u/s and MT progressing with therex. Robyn admitted improved pain level and no MORGAN upon leaving today. Patient Education: Education of diagnosis, Body/Joint mechanics, Education of Plan of Care Patient demonstrates compliance with HEP?: Yes Short Term Goals Goal #1: Pt independent and compliant with HEP. Goal to be met by: 05/06/18 Progress towards Goal:: Progressing Goal #2: Muscle tone of bilateral upper traps decreased to minimal. Goal to be met by: 05/06/18 Progress towards Goal:: Progressing Goal #3: Pt will demonstrate good postural awareness. Goal to be met by: 05/06/18 Goal #4: Cervical radiating symptoms decreased to occasional. Goal to be met by: 05/06/18 Assisted Goals Goal #1: Pt knows HEP and to continue ex's to maintain functional level at D/c. Goal to be met by: 06/01/18 Goal #2: Score on Neck Disability index improved to less than 30% impairment. 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 Goal to be met by: 06/01/18 Goal #4: Pt able to sleep 6 hours without interruption from neck or head pain. Goal to be met by: 06/01/18 Plan PLAN OF CARE EXPIRES ON:: 06/01/18 ORDER # VISITS AND/OR THROUGH DATE: 06/01/18 PLAN: Patient to continue TIW x 2 more weeks as ordered.
--- NOTE | 2018-05-01 10:16 | RS.OPPTDN ---
Subjective Date of Note: 05/01/18 Visit #: 4 Date of Evaluation: 04/22/18 Payer Source: Insurance Treatment Diagnosis: Cervicalgia, headaches Current Subjective/complaints:: Patient says she has been hurting more since Saturday. She says she had several appts, including her MD which seemed to exhaust her. She reports pain to both sides of her neck continuing to cause problems with sleep. She indicates her has a TENS unit, but she has not attempted to use it. - Treatment Modality: Ultrasound Parameters/Method Applied: continuous @ 1.5 w/cm2 x 10 mins bilateral UT and mid cervical paraspinals Patient Position: Sitting - Treatment Modality: Electrical Stim Unattended Parameters/Method Applied: IFC using 2 small and 2 large pads @ 11 ma x 20 mins at end of treatment Patient Position: Sitting - Heat/Cryotherapy Treatment: Hot Pack (cervical x 20 mins in sitting) Interventions - Exercise/Activities/Manual Therapy Exercises/Activities: Patient received passive cervical motion in SB and rotation. She performs shoulder shrugs and scap adduction after MT. Manual Therapy: STM throughout the R UT and scapular region, light trigger point work x 14 mins. HOME EXERCISE PROGRAM: pec major stretch (corner stretch), scapular retraction, and gentle cervical retraction for HEP. - Charges Timed Code Treatment Minutes: 24 Total Treatment Time: 64 Procedures billed for this date of service:: hp, u/s, estim (un), MT Assessment: Patient presents with guarded, forward posture describing elevated pain and fatigue. She continues to alt heat and ice at home and stretch as she is able. She appears to thanh MT better today as she guards less and pulls back less often. Added estim at end of session for added pain relief and decrease muscle guarding/sensitivity. Patient Education: Education of diagnosis, Home Exercise Program, Education of Plan of Care Patient demonstrates compliance with HEP?: Yes Short Term Goals Goal #1: Pt independent and compliant with HEP. Goal to be met by: 05/06/18 Progress towards Goal:: Progressing Goal #2: Muscle tone of bilateral upper traps decreased to minimal. Goal to be met by: 05/06/18 Progress towards Goal:: Progressing Goal #3: Pt will demonstrate good postural awareness. Goal to be met by: 05/06/18 Goal #4: Cervical radiating symptoms decreased to occasional. Goal to be met by: 05/06/18 Snowblower Mechanic Goals Goal #1: Pt knows HEP and to continue ex's to maintain functional level at D/c. Goal to be met by: 06/01/18 Goal #2: Score on Neck Disability index improved to less than 30% impairment. 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 Goal to be met by: 06/01/18 Goal #4: Pt able to sleep 6 hours without interruption from neck or head pain. Goal to be met by: 06/01/18 Plan PLAN OF CARE EXPIRES ON:: 06/01/18 ORDER # VISITS AND/OR THROUGH DATE: 06/01/18 PLAN: Patient to continue x 1-2 more weeks
--- NOTE | 2018-05-06 10:24 | RS.OPPTDN ---
Subjective Date of Note: 05/06/18 Visit #: 5 Date of Evaluation: 04/22/18 Payer Source: Insurance Treatment Diagnosis: Cervicalgia, headaches Current Subjective/complaints:: Patient says that last treatment helped her more than anything. She says she has her flare ups due to migraines and fibromyalgia, but felt her pain stayed down longer and was less intense. Robyn reports that her pain had significantly reduced all day until bedtime and she felt she could not get comfortable (which is usual for her). She says she continues to use tennis balls and ice at home which is the most beneficial at this time. Pain Assessment - Pain Description Pain Location: 03/16 prior to treatment, 12/14 afterwards - Treatment Modality: Ultrasound Parameters/Method Applied: continuous @ 1.5w/cm2 x 10 mins to bilateral UT and closer to C5-C7 paraspinals Patient Position: Sitting - Treatment Modality: Electrical Stim Unattended Parameters/Method Applied: hivolt 2 small pads, 2 large at the bilateral UT x 15 mins @ 85-100 pk volts after MT - Heat/Cryotherapy Treatment: Hot Pack (Hp prior to cervical x 15 mins, then cold pack with estim after MT x 15) Interventions - Exercise/Activities/Manual Therapy Exercises/Activities: Patient received passive cervical motion in SB and rotation. She performs shoulder shrugs and scap adduction after MT. Total minutes of Exercise: 6 Manual Therapy: STM throughout the R UT and scapular region, light trigger point work x 14 mins. Total minutes of Manual Therapy: 14 HOME EXERCISE PROGRAM: pec major stretch (corner stretch), scapular retraction, and gentle cervical retraction for HEP. - Charges Timed Code Treatment Minutes: 30 Total Treatment Time: 60 Procedures billed for this date of service:: hp, u/s, estim (un), MT Assessment: Patient responding to modification of treatment. She demo increased muscle guarding initially today to the R UT and scapula, but is reduced with modalities and MT. Less tenderness noted throughout with moderate pressures. Pain relief lasting all day until bedtime. Patient Education: Body/Joint mechanics, Home Exercise Program Patient demonstrates compliance with HEP?: Yes Short Term Goals Goal #1: Pt independent and compliant with HEP. Goal to be met by: 05/06/18 Progress towards Goal:: Progressing Goal #2: Muscle tone of bilateral upper traps decreased to minimal. Goal to be met by: 05/06/18 Progress towards Goal:: Progressing Goal #3: Pt will demonstrate good postural awareness. Goal to be met by: 05/06/18 Progress towards Goal:: Progressing Goal #4: Cervical radiating symptoms decreased to occasional. Goal to be met by: 05/06/18 Progress towards Goal:: Progressing Cnc Supervisor Goals Goal #1: Pt knows HEP and to continue ex's to maintain functional level at D/c. Goal to be met by: 06/01/18 Goal #2: Score on Neck Disability index improved to less than 30% impairment. 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 Goal to be met by: 06/01/18 Goal #4: Pt able to sleep 6 hours without interruption from neck or head pain. Goal to be met by: 06/01/18 Plan PLAN OF CARE EXPIRES ON:: 06/01/18 ORDER # VISITS AND/OR THROUGH DATE: 06/01/18 PLAN: Patient to continue modification of treatment including progressive therex and MT
== END 2018-05-06 23:59 ==
PROVIDERS: ATTEND Clinical Nurse Specialist Adult Health
DX: M54.2 Cervicalgia (principal); R51 Headache

== ENCOUNTER 2018-05-15 10:00 | Outpatient (RCR) ==
--- NOTE | 2018-05-08 10:20 | RS.CXNS ---
Date of scheduled appointment: 05/08/18 Type: Cancel Reason for Cancel/NS: job interview
--- NOTE | 2018-05-13 12:00 | RS.OPPTDN ---
Subjective Date of Note: 05/13/18 Visit #: 6 Date of Evaluation: 04/22/18 Payer Source: Insurance Treatment Diagnosis: Cervicalgia, headaches Current Subjective/complaints:: Patient says she has pain all the time, but pain does worsen during the day causing it to radiate from the R side of her neck upward to the base of her neck. States she still has a lot of trouble sleeping. She says she stays "tensed up" and assumes this posture mostly throughout the day. Pain Assessment - Pain Description Pain Location: elevated Pain Description: Tightness, Radiating - Treatment Modality: Ultrasound Parameters/Method Applied: continuous @ 1.6 w/cm2 x 10 mins to the R UT to R cervical paraspinals Patient Position: Sitting - Treatment Modality: Electrical Stim Unattended Parameters/Method Applied: 1 small, 1 large at the R UT @ 85-90 pk volts x 15 mins after MT with CP - Heat/Cryotherapy Treatment: Hot Pack (15 mins cervical in sitting) Comments:: cold pack with estim after MT Interventions - Exercise/Activities/Manual Therapy Exercises/Activities: Patient received passive cervical motion in SB and rotation. She performs shoulder shrugs and scap adduction after MT. Manual Therapy: STM throughout the R UT and scapular region, deeper trigger point work x 14 mins. HOME EXERCISE PROGRAM: pec major stretch (corner stretch), scapular retraction, and gentle cervical retraction for HEP. - Charges Timed Code Treatment Minutes: 24 Total Treatment Time: 54 Procedures billed for this date of service:: hp, u/s, estim (un), MT Assessment: Patient has elevated pain and tightness throughout the R UT and mid trap. She had missed therapy last week and does demo moderate muscle guarding to this area. One large active trigger point found along the mid point of R UT. This did reduce with MT and pain had decreased following ice/estim as well allowing for improved cspine ROM actively. Patient Education: Body/Joint mechanics, Home Exercise Program, Education of Plan of Care Patient demonstrates compliance with HEP?: Yes Short Term Goals Goal #1: Pt independent and compliant with HEP. Goal to be met by: 05/06/18 Progress towards Goal:: Progressing Goal #2: Muscle tone of bilateral upper traps decreased to minimal. Goal to be met by: 05/06/18 Progress towards Goal:: Progressing Goal #3: Pt will demonstrate good postural awareness. Goal to be met by: 05/06/18 Progress towards Goal:: Progressing Goal #4: Cervical radiating symptoms decreased to occasional. Goal to be met by: 05/06/18 Progress towards Goal:: Progressing Fpc Goals Goal #1: Pt knows HEP and to continue ex's to maintain functional level at D/c. Goal to be met by: 06/01/18 Goal #2: Score on Neck Disability index improved to less than 30% impairment. 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 Goal to be met by: 06/01/18 Goal #4: Pt able to sleep 6 hours without interruption from neck or head pain. Goal to be met by: 06/01/18 Plan PLAN OF CARE EXPIRES ON:: 06/01/18 ORDER # VISITS AND/OR THROUGH DATE: 06/01/18 PLAN: Continue x 3 more sessions per order.
--- NOTE | 2018-05-15 11:12 | RS.OPPTDN ---
Subjective Date of Note: 05/15/18 Visit #: 7 Date of Evaluation: 04/22/18 Payer Source: Insurance Treatment Diagnosis: Cervicalgia, headaches Current Subjective/complaints:: Patient admits continued pain today. She admits that the weather is influencing her symptoms, but can tell that her MORGAN's are fewer and less intense. She c/o R hand tingling and beginning to drop items. Says she noticed these radiating symptoms worsening while she was standing at her stove cooking and stirring. Pain Assessment - Pain Description Pain Location: R UT - Treatment Modality: Ultrasound Parameters/Method Applied: continuous @ 1.5 w/cm2 x 10 mins to the R UT midway to proximal Patient Position: Sitting - Treatment Modality: Electrical Stim Unattended Parameters/Method Applied: hivolt 1 small pad, 1 large at the R UT @ 80 pk volts x 15 mins after therex/MT Patient Position: Sitting - Heat/Cryotherapy Treatment: Hot Pack (cervical angled across the R shoulder/neck x 15 mins sitting), Cryotherapy (x15 mins across the R Ut with estim) Interventions - Exercise/Activities/Manual Therapy Exercises/Activities: Patient received passive cervical motion in SB and rotation. She performs shoulder flexion with 2# wand to shoulder height only. She began to have difficulty, so we removed 1#. Patient performs scap retraction with red tband all x 10 reps avg. 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 Database Marketing Analyst assessed and Functional Index reassessed also. Total minutes of Exercise: 12 Manual Therapy: STM throughout the R UT and scapular region, deeper trigger point work x 14 mins. HOME EXERCISE PROGRAM: pec major stretch (corner stretch), scapular retraction, and gentle cervical retraction for HEP. - Objective Findings Observations,measurements,etc.: Database Marketing Analyst @ 3rd position R hand: 12-15# avg, L hand 20-22# avg. Improved R hand anvilsmith from 5# at eval. Neck Disability Index: 23 or 46% impaired (Eval was 27 or 54% impaired) - Charges Timed Code Treatment Minutes: 36 Total Treatment Time: 66 Procedures billed for this date of service:: hp, u/s, EX, MT, Estim (un) Assessment: Patient admits improved MORGAN intensity and frequency as well as demo less muscle guarding to the R UT, tolerating increased palpation to this area without moving away from me now. She demo increased anvilsmith strength to the R UE and improved score on Disability Index. She needs to be more consistent with progressive strengthening as she will need that for her continued job duties. Patient Education: Body/Joint mechanics, Home Exercise Program, Education of Plan of Care Short Term Goals Goal #1: Pt independent and compliant with HEP. Goal to be met by: 05/06/18 Progress towards Goal:: Progressing Goal #2: Muscle tone of bilateral upper traps decreased to minimal. Goal to be met by: 05/06/18 Progress towards Goal:: Progressing Goal #3: Pt will demonstrate good postural awareness. Goal to be met by: 05/06/18 Progress towards Goal:: Met (She continues with R radiculopathy, but is intermittent) Goal #4: Cervical radiating symptoms decreased to occasional. Goal to be met by: 05/06/18 Progress towards Goal:: Progressing Boom Master Goals Goal #1: Pt knows HEP and to continue ex's to maintain functional level at D/c. Goal to be met by: 06/01/18 Goal #2: Score on Neck Disability index improved to less than 30% impairment. Goal to be met by: 06/01/18 Progress towards goal: Progressing Goal #3: Pt will tolerate computer work with minimal neck pain or headaches. Goal to be met by: 06/01/18 Progress towards goal: Progressing (no change in sleep pattern) Goal #4: Pt able to sleep 6 hours without interruption from neck or head pain. Goal to be met by: 06/01/18 Plan PLAN OF CARE EXPIRES ON:: 06/01/18 ORDER # VISITS AND/OR THROUGH DATE: 06/01/18 PLAN: Continue 1 more session per order/insurance approval
--- NOTE | 2018-05-20 09:04 | RS.CXNS ---
Date of scheduled appointment: 05/20/18 Type: Cancel Reason for Cancel/NS: due to family emergency
--- NOTE | 2018-05-29 14:34 | RS.QUICKDC ---
Discharge from PT Date of Discharge: 05/29/18 Number of Visits: 7 Reason for Discharge: Patient had reported only slight change in pain with treatment to the R cervical and R UE. She received treatment of moist heat, u/s , exercise, Manual therapy, and estim/cryotherapy. She had a trial of cervical mechanical traction which resulted in intoleration of low pull. She attended full order, but cancelled her final visit, therefore full reassessment was not completed. See daily notes for specific treatment.
== END 2018-06-06 23:59 ==
PROVIDERS: ATTEND Clinical Nurse Specialist Adult Health
DX: M54.2 Cervicalgia (principal)